=== PATIENT | female | born 1940 | race Caucasian/White ===

== ENCOUNTER 2016-09-21 15:31 | Emergency (ER) | payer MEDICARE, MEDICAID ==
[2016-09-21 15:45] VITALS: BP 143/79
[2016-09-21] MEDS ORDERED: Albuterol/Ipratropium 3.0-0.5 MG/3 ML Neb Soln NEB ONE (16:16)
--- NOTE | 2016-09-21 16:21 | EDM.PDOC ---
ED HISTORY OF PRESENT ILLNESS - General Chief Complaint: Respiratory Problem Stated Complaint: COUGH Time Seen by Provider: 09/21/16 15:58 Source of Information: Reports: Patient, Family () History Limitations: Reports: No limitations - History of Present Illness INITIAL COMMENTS - FREE TEXT/NARRATIVE: PT STATES SHE HAS HAD A COUGH AND CHEST CONGESTION FOR ABOUT 2 WEEKS AND NOW IS BECOMING SOB. DENIES CP, FEVER, N/V/D. Timing/Duration: Reports: Week(s): (2) Severity: mild Improves with: Reports: None Worsens with: Reports: None Associated Symptoms (General): Reports: cough, shortness of breath - Related Data Allergies/ADRs: Allergies Allergy/AdvReac Type Severity Reaction Status Date / Time brompheniramine Allergy Cannot Verified 09/21/16 15:43 Remember Home Meds: Home Meds Acetaminophen [Tylenol Arthritis Pain] 650 mg PO TID PRN 09/21/16 [History] Albuterol/Ipratropium [DuoNeb 3.0-0.5 MG/3 ML] 3 ml NEB DAILY PRN 09/21/16 [ History] Albuterol/Ipratropium [DuoNeb 3.0-0.5 MG/3 ML] 3 ml NEB Q8HRRT 09/21/16 [History ] Aspirin 325 mg PO DAILY 09/21/16 [History] Baclofen 5 mg PO BID 09/21/16 [History] Calcium Carbonate/Vitamin D3 [Calcium 600 + Vit D Tablet] 1 each PO BID [History] ClonazePAM [KlonoPIN] 0.25 mg PO DAILY PRN 09/21/16 [History] ClonazePAM [KlonoPIN] 0.5 mg PO BID 09/21/16 [History] Dextran 70/Hypromellose [Artificial Tears] 1 drop EYEBOTH TID 09/21/16 [History] Fenofibrate 160 mg PO BEDTIME 09/21/16 [History] Fish Oil/[place]-3 Fatty Acids [Fish Oil] 2 each PO TID 09/21/16 [History] Fluticasone/Salmeterol [Advair 250-50 Diskus] 1 each IH BID 09/21/16 [History] Ipratropium/Albuterol Sulfate [Combivent Respimat Inhal [place]] 4 gm IH QID 09/21 [History] Losartan Potassium 100 mg PO DAILY 09/21/16 [History] Magnesium Hydroxide [Milk of Magnesia] 30 ml PO BEDTIME 09/21/16 [History] Melatonin 6 mg PO BEDTIME 09/21/16 [History] Polyethylene Glycol 3350 [MiraLAX] 17 gm PO DAILY 09/21/16 [History] Potassium Chloride 20 meq PO BID 09/21/16 [History] Sertraline HCl [Zoloft] 175 mg PO DAILY 09/21/16 [History] Trolamine Salicylate/Aloe Vera [Aspercreme 10% Cream] 85 gm TP BID 09/21/16 [ History] traMADol HCl [Tramadol HCl] 100 mg PO TID 09/21/16 [History] Past Medical History HEENT History: Reports: Impaired vision Cardiovascular History: Reports: Hypertension Respiratory History: Reports: Asthma, COPD Gastrointestinal History: Reports: Chronic constipation, Hiatal hernia Genitourinary History: Reports: None SPECTRAL SCIENTIST History: Reports: None Musculoskeletal History: Reports: Arthritis, Other (see below) Other Musculoskeletal History: cystic fibrosis Neurological History: Reports: Cerebral palsy Psychiatric History: Reports: Anxiety, Depression, Mood swings Endocrine/Metabolic History: Reports: None Dermatologic History: Reports: Eczema, Psoriasis - Infectious Disease History Infectious Disease History: Reports: Chicken pox - Past Surgical History Cardiovascular Surgical History: Reports: None Respiratory Surgical History: Reports: None GI Surgical History: Reports: Appendectomy Female Surgical History: Reports: None Endocrine Surgical History: Reports: None Neurological Surgical History: Reports: None Musculoskeletal Surgical History: Reports: Knee replacement, Shoulder surgery Social & Family History - Tobacco Use Smoking Status *Q: Never Smoker Second Hand Smoke Exposure: No - Caffeine Use Caffeine Use: Reports: Coffee, Soda, Tea - Recreational Drug Use Recreational Drug Use: No ED ROS GENERAL - Review of Systems Review Of Systems: ROS reveals no pertinent complaints other than HPI. Constitutional: Reports: no symptoms HEENT: Reports: No symptoms Respiratory: Reports: Shortness of Breath, Cough Cardiovascular: Reports: No symptoms Endocrine: Reports: no symptoms GI/Abdominal: Reports: No symptoms : Reports: no symptoms Musculoskeletal: Reports: no symptoms Skin: Reports: no symptoms Neurological: Reports: No Symptoms Psychiatric: Reports: No symptoms Hematologic/Lymphatic: Reports: no symptoms Immunologic: Reports: no symptoms ED EXAM, GENERAL - Physical Exam Exam: See Below Exam Limited By: No limitations General Appearance: alert, WD/WN, no apparent distress Nose: normal inspection, normal mucosa, no blood Throat/Mouth: Normal inspection, Normal oropharynx, No airway compromise Head: atraumatic, normocephalic Neck: normal inspection Respiratory/Chest: no respiratory distress, rhonchi, wheezing Cardiovascular: regular rate, rhythm, no murmur GI/Abdominal: normal bowel sounds, soft, non tender Extremities: normal inspection Neurological: alert, oriented, normal cognition Psychiatric: normal affect, normal mood Skin Exam: Warm, Dry, Intact, Normal color, No rash Lymphatic: no adenopathy Course - Vital Signs Last Recorded V/S: Last Vital Signs Temp 98.2 F 09/21/16 15:37 Pulse 86 09/21/16 15:37 Resp 18 09/21/16 15:37 BP 143/79 H 09/21/16 15:37 Pulse Ox 95 09/21/16 15:37 - Orders/Labs/Meds Orders: Active Orders 24 hr Category Date Time Status Chest 2V [CR] Stat Exams 09/21/16 15:59 Ordered - Radiology Interpretation Free Text/Narrative:: CXR SHOWS BIBASILAR ATELECTASIS WITH RIGHT LOWER HEMITHORAX OPACIFICATION AND SUSPECT BOWEL HERNIA. - Re-Assessments/Exams Free Text/Narrative Re-Assessment/Exam: 09/21/16 17:52 PT AFEBRILE, NONTOXIC APPEARING, VSS. DISCUSSED CASE WITH DR SUAREZ, WOULD LIKE TO START PT ON ABX AND PREDNISONE AND HAVE F/U AT [facility] Departure - Departure Time of Disposition: 17:53 Disposition: DC/Tfer to [facility] Condition: good Clinical Impression: Bronchitis Instructions: Shortness of Breath, [id number], Acute Bronchitis, [id number] Forms: ED Department Discharge Additional Instructions: FOLLOW UP AT [facility] IN 2-3 DAYS. RETURN TO ER SOONER IF SYMPTOMS CONTINUE OR WORSEN - My Orders Last 24 Hours: My Active Orders 09/21/16 15:59 Chest 2V [CR] Stat - Assessment/Plan Last 24 Hours: My Active Orders 09/21/16 15:59 Chest 2V [CR] Stat Assessment:: BRONCHITIS Plan: BACTRIM / PREDNISONE / F-U AT [facility]
[2016-09-21] MEDS ORDERED: Sulfamethoxazole/Trimethoprim 800-160 MG Tab PO ONE (17:49)
[2016-09-21] MEDS ORDERED: methylPREDNISolone Sodium Succinate 125 MG/2 ML SDV IM ONE (17:49)
== END 2016-09-21 18:15 ==
LOC: KA.ED 15:31
DX: J40 Bronchitis, not specified as acute or chronic (principal); I10 Essential (primary) hypertension; J44.9 Chronic obstructive pulmonary disease, unspecified; M19.90 Unspecified osteoarthritis, unspecified site; F41.9 Anxiety disorder, unspecified; F32.9 Major depressive disorder, single episode, unspecified; Z79.82 Long term (current) use of aspirin; Z79.899 Other long term (current) drug therapy; Z90.49 Acquired absence of other specified parts of digestive tract; Z88.8 Allergy status to other drugs, medicaments and biological substances
CPT/HCPCS: 71020; 94640; 96372; 99284; A9270; J2930

== ENCOUNTER 2018-10-18 14:13 | Inpatient (IN) | payer MEDICARE, MEDICAID ==
[2018-10-18] MEDS ORDERED: Albuterol/Ipratropium 3.0-0.5 MG/3 ML Neb Soln NEB ONE (14:56)
[2018-10-18 15:01] LABS: ANION GAP 16.1 mmol/L (5-15); CHLORIDE,CL 106 mmol/L (98-115); SODIUM,NA 142 mmol/L (136-145)
--- NOTE | 2018-10-18 15:06 | EDM.PDOC ---
ED HPI GENERAL MEDICAL PROBLEM - General Chief Complaint: General Stated Complaint: ? ASPIRATION Time Seen by Provider: 10/18/18 14:55 Source of Information: Reports: Patient, Group Home Records, Provider History Limitations: Reports: No Limitations - History of Present Illness INITIAL COMMENTS - FREE TEXT/NARRATIVE: Patient is a 77-year-old female who presents to the emergency department this afternoon from [facility] with a complaint of cough, desaturation , and suspicion of aspiration. Per nursing, home staff at approximately noon today, patient was having lunch and may have aspirated because it initiated a coughing episode. Patient found to have oxygen saturation in the high 80s on room air. Nursing staff contacted Jessica Panchal, nurse practitioner for [facility]. She contacted me for concern and transfer to ER. Patient was diagnosed with pneumonia on Friday and started on Levaquin. Upon arrival patient oxygen saturation was 88% on room air, however, other vital signs were normal. Patient denies chest pain, nausea, vomiting, or fever. Onset: Today Duration: Hour(s): Location: Reports: Chest Severity: Mild Improves with: Reports: Medication Worsens with: Reports: None Associated Symptoms: Reports: Cough. Denies: cough w sputum, Fever/Chills, Nausea/Vomiting - Related Data Allergies Allergy/AdvReac Type Severity Reaction Status Date / Time brompheniramine Allergy Cannot Verified 10/18/18 14:22 Remember Home Meds: Home Meds Acetaminophen [Tylenol Arthritis Pain] 650 mg PO TID@,,09/21/16 [History] Albuterol/Ipratropium [DuoNeb 3.0-0.5 MG/3 ML] 3 ml NEB BID PRN 09/21/16 [ History] Albuterol/Ipratropium [DuoNeb 3.0-0.5 MG/3 ML] 3 ml NEB QID 09/21/16 [History] Aspirin 325 mg PO DAILY 09/21/16 [History] ClonazePAM [KlonoPIN] 0.5 mg PO BID 09/21/16 [History] Fenofibrate 160 mg PO BEDTIME 09/21/16 [History] Fish Oil/[place]-3 Fatty Acids [Fish Oil 1,000 MG] 2,000 mg PO BID 09/21/16 [ History] Fluticasone/Salmeterol [Advair 250-50 Diskus] 1 puff IH BID 09/21/16 [History] Losartan Potassium 100 mg PO DAILY 09/21/16 [History] Magnesium Hydroxide [Milk of Magnesia] 30 ml PO BEDTIME 09/21/16 [History] Polyethylene Glycol 3350 [MiraLAX] 17 gm PO DAILY PRN 09/21/16 [History] Potassium Chloride 20 meq PO BID 09/21/16 [History] Sertraline HCl [Zoloft] 150 mg PO BEDTIME 09/21/16 [History] Acetaminophen [Tylenol] 650 mg PO Q4H PRN 04/21/18 [History] Aspercreme Lotion 10% 1 applic TOP BID 04/21/18 [History] Baclofen 2.5 mg PO BID 04/21/18 [History] Calamine/Zinc Oxide [Calamine Lotion] 1 applic TP TID PRN 04/21/18 [History] Calcium Carbonate/Vitamin D3 [Calcium 600-Vit D3 400 Tablet] 1 each PO BID 04/21 [History] Ipratropium/Albuterol Sulfate [Combivent Respimat 20-100 Mcg] 1 puff INH QID@07, ,15,19 04/21/18 [History] Mirtazapine [Remeron] 7.5 mg PO BEDTIME 04/21/18 [History] Propylene Glycol/Peg 400 [Systane 0.3-0.4% Eye Drops] 1 drop EYEBOTH TID@08,, 17 04/21/18 [History] guaiFENesin 5 ml PO Q4H PRN 04/21/18 [History] Omeprazole 20 mg PO DAILY #30 cap.sr 04/28/18 [Rx] Past Medical History HEENT History: Reports: Impaired Vision Cardiovascular History: Reports: Hypertension Respiratory History: Reports: Asthma, COPD Gastrointestinal History: Reports: Chronic Constipation, Hiatal Hernia Genitourinary History: Reports: None GATE AGENT History: Reports: None Musculoskeletal History: Reports: Arthritis, Other (See Below) Other Musculoskeletal History: cystic fibrosis Neurological History: Reports: Cerebral Palsy Psychiatric History: Reports: Anxiety, Depression, Mood Swings Endocrine/Metabolic History: Reports: None Dermatologic History: Reports: Eczema, Psoriasis - Infectious Disease History Infectious Disease History: Reports: Chicken Pox - Past Surgical History Musculoskeletal Surgical History: Reports: Knee Replacement, Shoulder Surgery Social & Family History - Family History HEENT: Reports: None Cardiac: Reports: None Respiratory: Reports: None GI: Reports: None Neurological: Reports: Dementia Psychiatric: Reports: Depression Endocrine/Metabolic: Reports: Diabetes, type II - Tobacco Use Smoking Status *Q: Never Smoker Second Hand Smoke Exposure: No - Caffeine Use Caffeine Use: Reports: Coffee, Soda, Tea - Recreational Drug Use Recreational Drug Use: No ED ROS GENERAL - Review of Systems Review Of Systems: ROS reveals no pertinent complaints other than HPI. Constitutional: Reports: No Symptoms HEENT: Reports: No Symptoms Respiratory: Reports: Wheezing, Pleuritic Chest Pain Cardiovascular: Reports: No Symptoms Endocrine: Reports: No Symptoms GI/Abdominal: Reports: No Symptoms : Reports: No Symptoms Musculoskeletal: Reports: No Symptoms Skin: Reports: No Symptoms Neurological: Reports: No Symptoms Psychiatric: Reports: No Symptoms Hematologic/Lymphatic: Reports: No Symptoms Immunologic: Reports: No Symptoms ED EXAM, GENERAL - Physical Exam Exam: See Below Exam Limited By: No Limitations General Appearance: Alert, WD/WN, No Apparent Distress Nose: Normal Inspection, Normal Mucosa, No Blood Throat/Mouth: Normal Inspection, Normal Oropharynx, No Airway Compromise Head: Atraumatic, Normocephalic Neck: Normal Inspection Respiratory/Chest: No Respiratory Distress, Crackles (Right Lower lobe), Wheezing Cardiovascular: Regular Rate, Rhythm, No Murmur GI/Abdominal: Normal Bowel Sounds, Soft, Non-Tender Extremities: Normal Inspection Neurological: Alert, Oriented, Normal Cognition Psychiatric: Normal Affect, Normal Mood Skin Exam: Warm, Dry, Intact, Normal Color, No Rash Course - Vital Signs Last Recorded V/S: Last Vital Signs Temp 98.0 F 10/18/18 14:17 Pulse 112 H 10/18/18 14:17 Resp 20 10/18/18 14:17 BP 145/64 H 10/18/18 14:17 Pulse Ox 88 L 10/18/18 14:17 - Orders/Labs/Meds Orders: Active Orders 24 hr Category Date Time Status RT Aerosol Therapy [RC] ASDIRECTED Care 10/18/18 14:56 Ordered Chest 1V Frontal [CR] Stat Exams 10/18/18 14:27 Taken Labs: Laboratory Tests 10/18/18 10/18/18 Range/Units 14:30 14:30 WBC 9.69 (5.00-10.00) 10^3/uL RBC 4.18 (3.80-5.50) 10^6/uL Hgb 13.0 (12.0-16.0) g/dL Hct 40.4 (37.0-47.0) % MCV 96.7 H (82.0-92.0) fL MCH 31.1 H (27.0-31.0) pg MCHC 32.2 (32.0-36.0) g/dL RDW 12.9 (11.5-14.5) % Plt Count 217 D (150-400) 10^3/uL MPV 9.3 (7.4-10.4) fL Immature Gran % (Auto) 1.8 (0.0-5.0) % Neut % (Auto) 73.8 H (50.0-70.0) % Lymph % (Auto) 13.0 L (20.0-40.0) % [place] % (Auto) 11.1 H (2.0-8.0) % Eos % (Auto) 0.1 L (1.0-3.0) % Baso % (Auto) 0.2 (0.0-1.0) % Immature Gran # (Auto) 0.17 (0.00-0.50) 10^3/uL Neut # (Auto) 7.15 H (2.50-7.00) 10^3/uL Lymph # (Auto) 1.26 (1.00-4.00) 10^3/uL [place] # (Auto) 1.08 H (0.10-0.80) 10^3/uL Eos # (Auto) 0.01 L (0.10-0.30) 10^3/uL Baso # (Auto) 0.02 (0.00-0.10) 10^3/uL Sodium 142 (136-145) mmol/L Potassium 4.4 (3.3-5.3) mmol/L Chloride 106 (98-115) mmol/L Carbon Dioxide 24.3 (21.0-32.0) mmol/L Anion Gap 16.1 H (5-15) mmol/L BUN 33 H (6-25) mg/dL Creatinine 1.24 H (0.51-1.17) mg/dL Est Cr Clr Drug Dosing TNP Estimated GFR (MDRD) 42 mL/min Glucose 148 H (75 - 99) mg/dL Calcium 10.4 H D (8.7-10.3) mg/dL Total Bilirubin 0.1 L (0.2-1.0) mg/dL AST 15 (15-37) U/L ALT 9 L (12-78) U/L Alkaline Phosphatase 56 (46-116) IU/L Total Protein 7.9 (6.4-8.2) g/dL Albumin 2.63 L (3.00-4.80) g/dL Meds: Medications Discontinued Medications Generic Name Dose Route Start Last Admin Trade Name Freq PRN Reason Stop Dose Admin Albuterol/Ipratropium 3 ml 10/18/18 14:56 Duoneb 3.0-0.5 Mg/3 Ml NEB 10/18/18 14:57 ONETIME ONE - Radiology Interpretation Free Text/Narrative:: Chest x-ray shows right lower lobe pneumonia - Re-Assessments/Exams Free Text/Narrative Re-Assessment/Exam: 10/18/18 15:09 Patient afebrile, vital signs stable, patient received DuoNeb in ER. Mild wheezing persist bilateral apical expiratory. Discussed case with Jessica Panchal, nurse practitioner at [facility]. She will decide on antibiotic course with suspicion of aspiration. Therefore, no additional antibiotics given while in ER. Patient will be admitted inpatient and followed by [facility]. Departure - Departure Time of Disposition: 15:11 Disposition: Admitted As Inpatient 68 Clinical Impression: Pneumonia, Hypoxemia - Discharge Information Referrals: Nicole Abel MD [Primary Care Provider] - Forms: ED Department Discharge - My Orders Last 24 Hours: My Active Orders 10/18/18 14:27 Chest 1V Frontal [CR] Stat 10/18/18 14:56 RT Aerosol Therapy [RC] ASDIRECTED - Assessment/Plan Last 24 Hours: My Active Orders 10/18/18 14:27 Chest 1V Frontal [CR] Stat 10/18/18 14:56 RT Aerosol Therapy [RC] ASDIRECTED Assessment:: Pneumonia Plan: Admit inpatient to [facility]
[2018-10-18] MEDS ORDERED: Acetaminophen 325 MG Tab PO PRN (16:21)
[2018-10-18] MEDS ORDERED: Ondansetron 4 MG Tab.DIS PO PRN (16:27)
[2018-10-18] MEDS ORDERED: Magnesium Hydroxide 400 MG/5 ML Susp 30 ML Cup PO PRN (16:27)
[2018-10-18] MEDS ORDERED: Polyethylene Glycol 3350 Powder 17 GM Packet PO PRN (16:27)
--- NOTE | 2018-10-18 16:38 | PCM.HP ---
H&P History of Present Illness - General Date of Service: 10/18/18 Admit Problem/Dx: Admission Diagnosis/Problem Admission Diagnosis/Problem Pneumonia Source of Information: Patient, [facility] Records, Old Records, Provider, RN History Limitations: Reports: No Limitations - History of Present Illness Initial Comments - Free Text/Narative: This is a 77 year old female with a past history notable for cerebral palsy, COPD, and remote history of Cdiff who presented to the ED due to possible aspiration at noon on 10/18/18 and hypoxia. She resides at [facility]. Patient states she was eating food when the coughing fit occurred. She reports chest pain with coughing. Patient was seen in the [facility] on 10/16/18 by myself due to cough and shortness of breath for the few days prior. She had lab and chest x-ray performed at that time with the following results; WBC 7.9 no neutrophilia, CMP unremarkable, BNP 48, and x-ray noting opacity in the lower 2/3 of the right lung possibly representing a large hiatal hernia or diaphragmatic hernia (chronic) and no infiltrates. She was started on levaquin 750 mg daily and DuoNebs QID for probable RLL pneumonia. Procalcitonin noted to be elevated at 0.10. This provider received a follow-up phone call from [facility] on 10/17/18 noting increased wheezing, so she was initiated on prednisone 20 mg BID. She had work-up in the ED notable for RLL pneumonia. She was admitted for further monitoring and treatment. - Related Data Allergies/Adverse Reactions: Allergies Allergy/AdvReac Type Severity Reaction Status Date / Time brompheniramine Allergy Cannot Verified 10/18/18 14:22 Remember Home Medications: Home Meds Acetaminophen [Tylenol Arthritis Pain] 650 mg PO TID@08,,17 09/21/16 [History] Albuterol/Ipratropium [DuoNeb 3.0-0.5 MG/3 ML] 3 ml NEB DAILY PRN 09/21/16 [ History] Albuterol/Ipratropium [DuoNeb 3.0-0.5 MG/3 ML] 3 ml NEB QID 09/21/16 [History] Aspirin 325 mg PO DAILY 09/21/16 [History] ClonazePAM [KlonoPIN] 0.5 mg PO TID 09/21/16 [History] Fish Oil/Blue Grass-3 Fatty Acids [Fish Oil 1,000 MG] 2,000 mg PO BID 09/21/16 [ History] Magnesium Hydroxide [Milk of Magnesia] 30 ml PO BEDTIME PRN 09/21/16 [History] Polyethylene Glycol 3350 [MiraLAX] 17 gm PO DAILY PRN 09/21/16 [History] Potassium Chloride 20 meq PO BID 09/21/16 [History] Sertraline HCl [Zoloft] 150 mg PO BEDTIME 09/21/16 [History] Acetaminophen [Tylenol] 650 mg PO Q4H PRN 04/21/18 [History] Aspercreme Lotion 10% 1 applic TOP BID 04/21/18 [History] Baclofen 2.5 mg PO BID 04/21/18 [History] Calamine/Zinc Oxide [Calamine Lotion] 1 applic TP TID PRN 04/21/18 [History] Calcium Carbonate/Vitamin D3 [Calcium 600-Vit D3 400 Tablet] 1 each PO BID 04/21 [History] Mirtazapine [Remeron] 7.5 mg PO BEDTIME 04/21/18 [History] Propylene Glycol/Peg 400 [Systane 0.3-0.4% Eye Drops] 1 drop EYEBOTH TID@,, 04/21/18 [History] guaiFENesin 5 ml PO Q4H PRN 04/21/18 [History] Budesonide [Pulmicort] 0.5 mg IH BID 10/18/18 [History] Famotidine [Pepcid] 20 mg PO BID 10/18/18 [History] Fenofibrate Nanocrystallized [Fenofibrate] 48 mg PO DAILY 10/18/18 [History] Lactobacillus Acidophilus [Acidophilus] 2 each PO BID 10/18/18 [History] Levofloxacin [Levaquin] 750 mg PO DAILY 10/18/18 [History] Loperamide [Imodium AD] 2 mg PO Q6H PRN 10/18/18 [History] Losartan Potassium [Cozaar] 50 mg PO DAILY 10/18/18 [History] Nystatin [Nystatin Ointment] 15 gm TOP TID PRN 10/18/18 [History] Ondansetron [Zofran ODT] 4 mg PO Q4H PRN 10/18/18 [History] Saliva Substitution Combo No.9 [Biotene] 1 ml PO DAILY PRN 10/18/18 [History] predniSONE [Prednisone] 20 mg PO BID 10/18/18 [History] Past Medical History HEENT History: Reports: Impaired Vision Cardiovascular History: Reports: Hypertension Respiratory History: Reports: Asthma, COPD Gastrointestinal History: Reports: Chronic Constipation, Hiatal Hernia Genitourinary History: Reports: None [employer] History: Reports: None Musculoskeletal History: Reports: Arthritis, Other (See Below) Other Musculoskeletal History: cystic fibrosis Neurological History: Reports: Cerebral Palsy Psychiatric History: Reports: Anxiety, Depression, Mood Swings Endocrine/Metabolic History: Reports: None Dermatologic History: Reports: Eczema, Psoriasis - Infectious Disease History Infectious Disease History: Reports: Chicken Pox - Past Surgical History Musculoskeletal Surgical History: Reports: Knee Replacement, Shoulder Surgery Social & Family History - Family History HEENT: Reports: None Cardiac: Reports: None Respiratory: Reports: None GI: Reports: None Neurological: Reports: Dementia Psychiatric: Reports: Depression Endocrine/Metabolic: Reports: Diabetes, type II - Tobacco Use Smoking Status *Q: Never Smoker Second Hand Smoke Exposure: No - Caffeine Use Caffeine Use: Reports: Coffee, Soda, Tea - Recreational Drug Use Recreational Drug Use: No H&P Review of Systems - Review of Systems: Review Of Systems: See Below General: Reports: Fatigue. Denies: Fever, Chills, Decreased Appetite HEENT: Reports: Glasses. Denies: Ear Pain, Headaches, Sinus Congestion, Sore Throat Pulmonary: Reports: Shortness of Breath (at times), Cough, Other (chest pain with coughing). Denies: Sputum Cardiovascular: Denies: Chest Pain, Edema Gastrointestinal: Denies: Abdominal Pain, Constipation, Diarrhea, Nausea, Vomiting Genitourinary: Reports: No Symptoms Musculoskeletal: Reports: No Symptoms Psychiatric: Denies: Confusion, Depression, Anxiety Neurological: Denies: Confusion, Headache Exam - Exam Exam: See Below - Vital Signs Vital Signs: Last Vital Signs Temp 98.0 F 10/18/18 14:17 Pulse 112 H 10/18/18 15:10 Resp 20 10/18/18 14:17 BP 145/64 H 10/18/18 14:17 Pulse Ox 88 L 10/18/18 14:17 Weight: 108 lb 4.8 oz - Exam Quality Assessment: Supplemental Oxygen (2 liters per nasal cannula), DVT Prophylaxis (score of 3: will initiate lovenox 30 mg SQ daily due to renal function). No: Urinary Catheter General: Alert, Oriented, Cooperative, Other (No distress) HEENT: Conjunctiva Clear, Hearing Intact, Nares Patent, Posterior Pharynx Clear , Pupils Equal, TMs Clear, Glasses. No: Mucosa Moist & [place] (pink and dry) Neck: Supple, Trachea Midline Lungs: Normal Respiratory Effort, Other (expiratory wheezing noted to SALMA and right lung cohen with coarse crackles to RLL) Cardiovascular: Regular Rhythm, Normal S1, Normal S2, Tachycardia (110 bpm apical). No: Systolic Murmur, Diastolic Murmur GI/Abdominal Exam: Normal Bowel Sounds, Soft, Non-Tender, No Distention Extremities: No Pedal Edema Skin: Warm, Dry, Intact Neurological: Normal Speech Neuro Extensive - Mental Status: Alert, Normal Mood/Affect Psychiatric: Alert, Normal Affect, Normal Mood - Patient Data Lab Results Last 24 hrs: Laboratory Results - last 24 hr 10/18/18 10/18/18 Range/Units 14:30 14:30 WBC 9.69 (5.00-10.00) 10^3/uL RBC 4.18 (3.80-5.50) 10^6/uL Hgb 13.0 (12.0-16.0) g/dL Hct 40.4 (37.0-47.0) % MCV 96.7 H (82.0-92.0) fL MCH 31.1 H (27.0-31.0) pg MCHC 32.2 (32.0-36.0) g/dL RDW 12.9 (11.5-14.5) % Plt Count 217 D (150-400) 10^3/uL MPV 9.3 (7.4-10.4) fL Immature Gran % (Auto) 1.8 (0.0-5.0) % Neut % (Auto) 73.8 H (50.0-70.0) % Lymph % (Auto) 13.0 L (20.0-40.0) % Alfalfa % (Auto) 11.1 H (2.0-8.0) % Eos % (Auto) 0.1 L (1.0-3.0) % Baso % (Auto) 0.2 (0.0-1.0) % Immature Gran # (Auto) 0.17 (0.00-0.50) 10^3/uL Neut # (Auto) 7.15 H (2.50-7.00) 10^3/uL Lymph # (Auto) 1.26 (1.00-4.00) 10^3/uL Alfalfa # (Auto) 1.08 H (0.10-0.80) 10^3/uL Eos # (Auto) 0.01 L (0.10-0.30) 10^3/uL Baso # (Auto) 0.02 (0.00-0.10) 10^3/uL Sodium 142 (136-145) mmol/L Potassium 4.4 (3.3-5.3) mmol/L Chloride 106 (98-115) mmol/L Carbon Dioxide 24.3 (21.0-32.0) mmol/L Anion Gap 16.1 H (5-15) mmol/L BUN 33 H (6-25) mg/dL Creatinine 1.24 H (0.51-1.17) mg/dL Est Cr Clr Drug Dosing TNP Estimated GFR (MDRD) 42 mL/min Glucose 148 H (75 - 99) mg/dL Calcium 10.4 H D (8.7-10.3) mg/dL Total Bilirubin 0.1 L (0.2-1.0) mg/dL AST 15 (15-37) U/L ALT 9 L (12-78) U/L Alkaline Phosphatase 56 (46-116) IU/L Total Protein 7.9 (6.4-8.2) g/dL Albumin 2.63 L (3.00-4.80) g/dL Result Diagrams: 10/18/18 14:30 10/18/18 14:30 Problem List Initiated/Reviewed/Updated: Yes Orders Last 24hrs: Active Orders 24 hr Category Date Time Status Patient Status [ADT] Routine ADT 10/18/18 15:22 Ordered Intake and Output [RC] QSHIFT Care 10/18/18 16:22 Ordered Oxygen Therapy [RC] PRN Care 10/18/18 15:22 Inactive Oxygen Therapy [RC] PRN Care 10/18/18 16:21 Ordered RT Aerosol Therapy [RC] ASDIRECTED Care 10/18/18 14:56 Active Swallow Screen [Nursing Bedside Swallow Screen] [RC] Care 10/18/18 16:31 Ordered ASDIRECTED Up With Assistance [RC] ASDIRECTED Care 10/18/18 16:21 Ordered VTE/DVT Education [RC] PER UNIT ROUTINE Care 10/18/18 15:22 Active Vital Signs [RC] Q4H Care 10/18/18 15:22 Inactive Vital Signs [RC] Q4H Care 10/18/18 16:21 Active Regular Diet [DIET] Diet 10/18/18 Dinner Active Thickened Liquids [DIET] Diet 10/18/18 Dinner Ordered Chest 1V Frontal [CR] Stat Exams 10/18/18 14:27 Taken Swallowing Function w Video [CR] Routine Exams 10/19/18 10:00 Ordered BASIC METABOLIC PANEL,BMP [CHEM] AM Lab 10/19/18 05:11 Ordered CBC WITH AUTO DIFF [HEME] AM Lab 10/19/18 05:11 Ordered Acetaminophen [Tylenol Arthritis Pain] Med 10/18/18 17:00 Ordered 650 mg PO TID@,,17 Acetaminophen [Tylenol] Med 10/18/18 16:21 Ordered 650 mg PO Q4H PRN Albuterol/Ipratropium [DuoNeb 3.0-0.5 MG/3 ML] Med 10/18/18 17:00 Ordered 3 ml NEB QID Aspercreme Lotion 10% Med 10/18/18 21:00 Ordered 1 applic TOP BID Aspirin [Aspirin] Med 10/19/18 09:00 Ordered 325 mg PO DAILY Baclofen [Baclofen] Med 10/18/18 21:00 Ordered 2.5 mg PO BID Budesonide [Pulmicort] Med 10/18/18 21:00 Ordered 0.5 mg INH BID Calcium Carbonate/Vitamin D3 [Calcium 600-Vit D3 400 Med 10/18/18 21:00 Ordered Tablet] 1 each PO BID ClonazePAM [KlonoPIN] Med 10/18/18 21:00 Ordered 0.5 mg PO TID Famotidine [Pepcid] Med 10/18/18 21:00 Ordered 20 mg PO BID Fenofibrate Nanocrystallized [Fenofibrate] Med 10/19/18 09:00 Ordered 48 mg PO DAILY Fish Oil/Blue Grass-3 Fatty Acids [Fish Oil] Med 10/18/18 21:00 Ordered 2 gm PO BID Lactobacillus Acidophilus [Acidophilus] Med 10/18/18 21:00 Ordered 2 each PO BID Loperamide [Imodium AD] Med 10/18/18 16:27 Ordered 2 mg PO Q6H PRN Losartan [Cozaar] Med 10/19/18 09:00 Ordered 50 mg PO DAILY Magnesium Hydroxide [Milk of Magnesia] Med 10/18/18 16:27 Ordered 30 ml PO BEDTIME PRN Mirtazapine Med 10/18/18 21:00 Ordered 7.5 mg PO BEDTIME Ondansetron [Zofran ODT] Med 10/18/18 16:27 Ordered 4 mg PO Q4H PRN Pharmacy to Dose - Vancomycin Med 10/18/18 16:45 Ordered 1 dose .XX ASDIRECTED Piperacillin/Tazobactam/Dext [Zosyn in Dextrose Iso- Med 10/18/18 16:45 Ordered Osmotic 3.375 GM] 3.375 gm Premix Bag 1 bag IV Q6H Polyethylene Glycol 3350 [MiraLAX] Med 10/18/18 16:27 Ordered 17 gm PO DAILY PRN Potassium Chloride [Potassium Chloride] Med 10/18/18 21:00 Ordered 20 meq PO BID Propylene Glycol/Peg 400 [Systane 0.3-0.4% Eye Drops] Med 10/18/18 17:00 Ordered 1 drop EYEBOTH TID@17 Sertraline [Zoloft] Med 10/18/18 21:00 Ordered 150 mg PO BEDTIME Sodium Chloride 0.9% [Normal Saline] 1,000 ml Med 10/18/18 16:30 Ordered IV ASDIRECTED guaiFENesin [Robitussin] Med 10/18/18 16:27 Ordered 100 mg PO Q4H PRN predniSONE Med 10/18/18 21:00 Ordered 20 mg PO BID Resuscitation Status Routine Resus Stat 10/18/18 15:22 Ordered Medication Orders Acetaminophen (Tylenol) 650 mg PO Q4H PRN PRN Reason: Pain (Mild 1-3)/fever Acetaminophen (Tylenol Arthritis Pain) 650 mg PO TID@,,17 [facility] Albuterol/Ipratropium (Duoneb 3.0-0.5 Mg/3 Ml) 3 ml NEB QID [facility] Budesonide (Pulmicort) 0.5 mg INH BID [facility] Clonazepam (Klonopin) 0.5 mg PO TID [facility] Famotidine (Pepcid) 20 mg PO BID [facility] Fish Oil (Fish Oil) 2 gm PO BID [facility] Guaifenesin (Robitussin) 100 mg PO Q4H PRN PRN Reason: Cough Sodium Chloride (Normal Saline) 1,000 mls @ 100 mls/hr IV ASDIRECTED [facility] Piperacillin/Tazobactam/ (Dextrose 3.375 gm/ Premix) 50 mls @ 100 mls/hr IV Q6H [facility] Losartan Potassium (Cozaar) 50 mg PO DAILY [facility] Magnesium Hydroxide (Milk Of Magnesia) 30 ml PO BEDTIME PRN PRN Reason: Constipation Non-Formulary Medication (Aspercreme Lotion 10%) 1 applic TOP BID [facility] Non-Formulary Medication (Aspirin [Aspirin]) 325 mg PO DAILY [facility] Non-Formulary Medication (Baclofen [Baclofen]) 2.5 mg PO BID [facility] Non-Formulary Medication (Calcium Carbonate/Vitamin D3 [Calcium 600-Vit D3 400 Tablet]) 1 each PO BID [facility] Non-Formulary Medication (Fenofibrate Nanocrystallized [Fenofibrate]) 48 mg PO DAILY [facility] Non-Formulary Medication (Lactobacillus Acidophilus [Acidophilus]) 2 each PO BID [facility] Non-Formulary Medication (Loperamide [Imodium Ad]) 2 mg PO Q6H PRN PRN Reason: Diarrhea Non-Formulary Medication (Mirtazapine) 7.5 mg PO BEDTIME [facility] Non-Formulary Medication (Potassium Chloride [Potassium Chloride]) 20 meq PO BID [facility] Non-Formulary Medication (Propylene Glycol/Peg 400 [Systane 0.3-0.4% Eye Drops] ) 1 drop EYEBOTH TID@,,17 [facility] Ondansetron HCl (Zofran Odt) 4 mg PO Q4H PRN PRN Reason: Nausea Polyethylene Glycol (Miralax) 17 gm PO DAILY PRN PRN Reason: Constipation Prednisone (Prednisone) 20 mg PO BID [facility] Sertraline HCl (Zoloft) 150 mg PO BEDTIME [facility] Vancomycin HCl (Pharmacy To Dose - Vancomycin) 1 dose .XX ASDIRECTED [facility] Assessment/Plan Comment:: HPI: This is a 77 year old female with a past history notable for cerebral palsy , COPD, and remote history of Cdiff who presented to the ED due to possible aspiration at noon on 10/18/18 and hypoxia. She resides at the [facility]. Patient states she was eating food when the coughing fit occurred. She reports chest pain with coughing. Patient was seen in the [facility] on 10/16/18 by myself due to cough and shortness of breath for the few days prior. She had lab and chest x-ray performed at that time with the following results; WBC 7.9 no neutrophilia, CMP unremarkable, BNP 48, and x-ray noting opacity in the lower 2/3 of the right lung possibly representing a large hiatal hernia or diaphragmatic hernia (chronic) and no infiltrates. She was started on levaquin 750 mg daily and DuoNebs QID for probable RLL pneumonia. Procalcitonin noted to be elevated at 0.10. This provider received a follow-up [facility] on 10[facility]18 noting increased wheezing, so she was initiated on prednisone 20 mg BID. She had work-up in the ED notable for RLL pneumonia. She was admitted for further monitoring and treatment. Pertinent ED work-up: WBC 9.6 with neutrophilia Creatinine 1.24 GFR 42 CXR-Mild right base infiltrate DuoNeb x 1 Further work-up upon admission: Medication reconciliation General orders Primary assessment/plan: RLL pneumonia, present on admission, rule out aspiration pneumonia. Discontinue oral levaquin. Provide coverage for possible aspiration component with IV vancomycin and IV zosyn. DuoNebs QID. Continue prednisone 20 mg po BID. Oxygen via nasal cannula to keep saturations >90%. CBC in AM. Obtain bedside swallow evaluation and formal x-ray swallow study. Acute COPD exacerbation. See plan above. Continue pulmicort nebs BID. Acute hypoxia. Acute kidney injury secondary to dehydration. Baseline creatinine 0.6-0.7. NS at 100 mL/hr. BMP in AM. Secondary assessment/plan: Voice hoarseness, persistent, unknown etiology. Initially thought to be related to stopping the PPI therapy due to Cdiff in the remote past. Trial of pepcid has not made much improvement. Consideration for ENT evaluation with nasolaryngoscopy. This has been discussed with brother in the recent past. May need to revisit this given possible aspiration component. Chronic dysphagia. Continue with regular dental texture soft diet and honey thickened liquids. Esophageal reflux. Continue pepcid BID. HTN. Continue losartan 50 mg daily. Hypokalemia. Continue potassium 20 mEq BID. HLD. LDL 46 (September 2017). Continue fenofibrate for now and fish oil. Major depression, recurrent. Continue zoloft 150 mg at HS. Anxiety. Continue clonazepam TID. Infantile cerebral palsy. Insomnia. Continue remeron 7.5 mg at HS. Mildline low back pain with sciatica. Remote history of recurrent Cdiff infection. Continue probiotics BID. Primary osteoarthritis of multiple joints. Continue scheduled tylenol and baclofen. DVT prophylaxis. Lovenox 30 mg SQ daily due to renal clearance. Overall plan: Patient will receive IV antibiotics and fluids. Monitor hemodynamic status. Evaluate swallowing. Repeat labs in AM.
[2018-10-18] MEDS ORDERED: Piperacillin/Tazobactam/Dext 3.375 GM in Premix Bag 1 BAG IV SCH (16:45)
[2018-10-18] MEDS ORDERED: Piperacillin/Tazobactam 2.25 GM in Sodium Chloride 0.9% 50 ML IV SCH ×2 (17:00→18:17)
[2018-10-18] MEDS ORDERED: Loperamide 2 MG Cap PO PRN (17:02)
[2018-10-18] MEDS: Acetaminophen 650 MG Tab.ER PO SCH (17:26)
[2018-10-18] MEDS ORDERED: Vancomycin 0.5 GM in Sodium Chloride 0.9% 250 ML IV ONE (18:00)
[2018-10-18] MEDS ORDERED: Enoxaparin 30 MG/0.3 ML Syringe SUBCUT SCH (18:00)
[2018-10-18] MEDS: Sodium Chloride 0.9% 1,000 ML IV SCH (18:13)
[2018-10-18] MEDS: Piperacillin/Tazobactam 2.25 GM in Sodium Chloride 0.9% 50 ML IV SCH (18:24)
[2018-10-18] MEDS: Trolamine Salicylate/Aloe Vera 10% Crm 85 GM Tube TOP SCH (20:32)
[2018-10-18] MEDS: Fish Oil/Omega-3 Fatty Acids 1 Gm Cap PO SCH ×2 (20:35→22:44)
[2018-10-18] MEDS: Potassium Chloride 20 MEQ Tab.ER PO SCH (20:35)
[2018-10-18] MEDS: Calcium Citrate/Vitamin D3 315 MG-250 Unit Tab PO SCH (20:35)
[2018-10-18] MEDS: ClonazePAM 0.5 MG Tab PO SCH (20:35)
[2018-10-18] MEDS: Mirtazapine 15 MG Tab PO SCH (20:36)
[2018-10-18] MEDS: B.Bifidum/B.Longum/L.Acidophilus/L.Rhamnosus (Probiotic) Cap PO SCH (20:36)
[2018-10-18] MEDS: predniSONE 20 MG Tab PO SCH (20:36)
[2018-10-18] MEDS: Sertraline 50 MG Tab PO SCH (20:37)
[2018-10-18] MEDS: Budesonide 0.5 MG/2 ML Neb Susp INH SCH (20:56)
[2018-10-18] MEDS: Albuterol/Ipratropium 3.0-0.5 MG/3 ML Neb Soln NEB SCH (22:44)
[2018-10-19] MEDS: Piperacillin/Tazobactam 2.25 GM in Sodium Chloride 0.9% 50 ML IV SCH ×2 (00:12→06:12)
[2018-10-19] MEDS ORDERED: Sodium Chloride 0.9% 50 ML ONE (04:27)
[2018-10-19] MEDS: Albuterol/Ipratropium 3.0-0.5 MG/3 ML Neb Soln NEB SCH ×4 (05:40→22:07)
[2018-10-19] MEDS: Sodium Chloride 0.9% 1,000 ML IV SCH (06:09)
[2018-10-19] MEDS: Budesonide 0.5 MG/2 ML Neb Susp INH SCH ×2 (07:36→20:55)
[2018-10-19 07:58] LABS: ANION GAP 12.3 mmol/L (5-15); CHLORIDE,CL 109 mmol/L (98-115); SODIUM,NA 143 mmol/L (136-145)
[2018-10-19] MEDS ORDERED: Sodium Chloride 0.9% 1,000 ML IV SCH (08:45)
--- NOTE | 2018-10-19 08:54 | PCM.PN ---
- General Info Date of Service: 10/19/18 Subjective Update: Patient sitting up in wheelchair eating breakfast per self on rounds. Overall reports that she is feeling some better. Functional Status: Reports: Pain Controlled, Tolerating Diet, Urinating - Review of Systems General: Reports: Fatigue. Denies: Fever, Chills HEENT: Reports: Glasses. Denies: Headaches Pulmonary: Reports: Shortness of Breath (at times), Cough, Other (chest pain with coughing episodes). Denies: Sputum Cardiovascular: Denies: Chest Pain, Edema Gastrointestinal: Denies: Abdominal Pain Genitourinary: Reports: No Symptoms Musculoskeletal: Reports: No Symptoms Neurological: Denies: Headache Psychiatric: Reports: No Symptoms - Patient Data Vitals - Most Recent: Last Vital Signs Temp 97.2 F 10/19/18 06:47 Pulse 96 10/19/18 07:36 Resp 20 10/19/18 06:47 BP 128/68 10/19/18 06:47 Pulse Ox 95 10/19/18 07:36 Weight - Most Recent: 108 lb 4.8 oz I&O - Last 24 Hours: Intake & Output 10/18/18 10/19/18 10/19/18 22:59 06:59 14:59 Intake Total 670 940 Output Total 125 200 Balance 545 740 Lab Results Last 24 Hours: Laboratory Results - last 24 hr 10/18/18 10/18/18 10/19/18 Range/Units 14:30 14:30 07:20 WBC 9.69 7.80 (5.00-10.00) 10^3/uL RBC 4.18 3.76 L (3.80-5.50) 10^6/uL Hgb 13.0 11.7 L (12.0-16.0) g/dL Hct 40.4 36.6 L (37.0-47.0) % MCV 96.7 H 97.3 H (82.0-92.0) fL MCH 31.1 H 31.1 H (27.0-31.0) pg MCHC 32.2 32.0 (32.0-36.0) g/dL RDW 12.9 12.7 (11.5-14.5) % Plt Count 217 D 178 (150-400) 10^3/uL MPV 9.3 9.4 (7.4-10.4) fL Immature Gran % (Auto) 1.8 4.0 (0.0-5.0) % Neut % (Auto) 73.8 H 74.8 H (50.0-70.0) % Lymph % (Auto) 13.0 L 13.5 L (20.0-40.0) % Hale % (Auto) 11.1 H 7.6 (2.0-8.0) % Eos % (Auto) 0.1 L 0.0 L (1.0-3.0) % Baso % (Auto) 0.2 0.1 (0.0-1.0) % Immature Gran # (Auto) 0.17 0.31 (0.00-0.50) 10^3/uL Neut # (Auto) 7.15 H 5.84 (2.50-7.00) 10^3/uL Lymph # (Auto) 1.26 1.05 (1.00-4.00) 10^3/uL Hale # (Auto) 1.08 H 0.59 (0.10-0.80) 10^3/uL Eos # (Auto) 0.01 L 0.00 L (0.10-0.30) 10^3/uL Baso # (Auto) 0.02 0.01 (0.00-0.10) 10^3/uL Sodium 142 (136-145) mmol/L Potassium 4.4 (3.3-5.3) mmol/L Chloride 106 (98-115) mmol/L Carbon Dioxide 24.3 (21.0-32.0) mmol/L Anion Gap 16.1 H (5-15) mmol/L BUN 33 H (6-25) mg/dL Creatinine 1.24 H (0.51-1.17) mg/dL Est Cr Clr Drug Dosing TNP Estimated GFR (MDRD) 42 mL/min Glucose 148 H (75 - 99) mg/dL Calcium 10.4 H D (8.7-10.3) mg/dL Total Bilirubin 0.1 L (0.2-1.0) mg/dL AST 15 (15-37) U/L ALT 9 L (12-78) U/L Alkaline Phosphatase 56 (46-116) IU/L Total Protein 7.9 (6.4-8.2) g/dL Albumin 2.63 L (3.00-4.80) g/dL 10/19/18 Range/Units 07:20 WBC (5.00-10.00) 10^3/uL RBC (3.80-5.50) 10^6/uL Hgb (12.0-16.0) g/dL Hct (37.0-47.0) % MCV (82.0-92.0) fL MCH (27.0-31.0) pg MCHC (32.0-36.0) g/dL RDW (11.5-14.5) % Plt Count (150-400) 10^3/uL MPV (7.4-10.4) fL Immature Gran % (Auto) (0.0-5.0) % Neut % (Auto) (50.0-70.0) % Lymph % (Auto) (20.0-40.0) % Hale % (Auto) (2.0-8.0) % Eos % (Auto) (1.0-3.0) % Baso % (Auto) (0.0-1.0) % Immature Gran # (Auto) (0.00-0.50) 10^3/uL Neut # (Auto) (2.50-7.00) 10^3/uL Lymph # (Auto) (1.00-4.00) 10^3/uL Hale # (Auto) (0.10-0.80) 10^3/uL Eos # (Auto) (0.10-0.30) 10^3/uL Baso # (Auto) (0.00-0.10) 10^3/uL Sodium 143 (136-145) mmol/L Potassium 4.2 (3.3-5.3) mmol/L Chloride 109 (98-115) mmol/L Carbon Dioxide 25.9 (21.0-32.0) mmol/L Anion Gap 12.3 (5-15) mmol/L BUN 27 H (6-25) mg/dL Creatinine 0.62 (0.51-1.17) mg/dL Est Cr Clr Drug Dosing 56.31 Estimated GFR (MDRD) > 60 mL/min Glucose 164 H (75 - 99) mg/dL Calcium 9.0 (8.7-10.3) mg/dL Total Bilirubin (0.2-1.0) mg/dL AST (15-37) U/L ALT (12-78) U/L Alkaline Phosphatase (46-116) IU/L Total Protein (6.4-8.2) g/dL Albumin (3.00-4.80) g/dL Med Orders - Current: Current Medications Acetaminophen (Tylenol) 650 mg PO Q4H PRN PRN Reason: Pain (Mild 1-3)/fever Acetaminophen (Tylenol Arthritis Pain) 650 mg PO TID@08,,17 [facility] Last Admin: 10/18/18 17:26 Dose: 650 mg Albuterol/Ipratropium (Duoneb 3.0-0.5 Mg/3 Ml) 3 ml NEB QIDRT [facility] Last Admin: 10/19/18 05:40 Dose: 3 ml Aspirin (Ecotrin) 325 mg PO DAILY [facility] Budesonide (Pulmicort) 0.5 mg INH BIDRT [facility] Last Admin: 10/19/18 07:36 Dose: 0.5 mg Calcium Citrate (Calcium Citrate + D) 1 tab PO BID [facility] Last Admin: 10/18/18 20:35 Dose: 1 tab Clonazepam (Klonopin) 0.5 mg PO TID [facility] Last Admin: 10/18/18 20:35 Dose: 0.5 mg Enoxaparin Sodium (Lovenox) 30 mg SUBCUT Q24H [facility] Last Admin: 10/18/18 17:27 Dose: 30 mg Famotidine (Pepcid) 20 mg PO DAILY [facility] Fish Oil (Fish Oil) 2 gm PO BID [facility] Last Admin: 10/18/18 22:44 Dose: Not Given Guaifenesin (Robitussin) 100 mg PO Q4H PRN PRN Reason: Cough Sodium Chloride (Normal Saline) 1,000 mls @ 100 mls/hr IV ASDIRECTED [facility] Last Admin: 10/19/18 06:09 Dose: 100 mls/hr Piperacillin Sod/Tazobactam (Sod 2.25 gm/ Sodium Chloride) 50 mls @ 100 mls/hr IV Q6H [facility] Last Admin: 10/19/18 06:12 Dose: 100 mls/hr Lactobacillus Acidophilus/Rhamnosus (Multi-Danna Plus) 2 cap PO BID [facility] Last Admin: 10/18/18 20:36 Dose: 2 cap Loperamide HCl (Imodium) 2 mg PO Q6H PRN PRN Reason: Diarrhea Losartan Potassium (Cozaar) 50 mg PO DAILY [facility] Magnesium Hydroxide (Milk Of Magnesia) 30 ml PO BEDTIME PRN PRN Reason: Constipation Mirtazapine (Remeron) 7.5 mg PO BEDTIME [facility] Last Admin: 10/18/18 20:36 Dose: 7.5 mg Non-Formulary Medication (Baclofen [Baclofen]) 2.5 mg PO BID [facility] Non-Formulary Medication (Fenofibrate Nanocrystallized [Fenofibrate]) 48 mg PO BEDTIME [facility] Non-Formulary Medication (Propylene Glycol/Peg 400 [Systane 0.3-0.4% Eye Drops] ) 1 drop EYEBOTH TID@ [facility] Ondansetron HCl (Zofran Odt) 4 mg PO Q4H PRN PRN Reason: Nausea Polyethylene Glycol (Miralax) 17 gm PO DAILY PRN PRN Reason: Constipation Potassium Chloride (Klor-Con M20) 20 meq PO BID [facility] Last Admin: 10/18/18 20:35 Dose: 20 meq Prednisone (Prednisone) 20 mg PO BID [facility] Stop: 10/21/18 23:59 Last Admin: 10/18/18 20:36 Dose: 20 mg Sertraline HCl (Zoloft) 150 mg PO BEDTIME [facility] Last Admin: 10/18/18 20:37 Dose: 150 mg Trolamine Salicylate (Aspercreme 10%) 0 gm TOP BID [facility] Last Admin: 10/18/18 20:32 Dose: 1 applic Vancomycin HCl (Pharmacy To Dose - Vancomycin) 1 dose .XX ASDIRECTED [facility] Discontinued Medications Albuterol/Ipratropium (Duoneb 3.0-0.5 Mg/3 Ml) 3 ml NEB ONETIME ONE Stop: 10/18/18 14:57 Last Admin: 10/18/18 15:10 Dose: 3 ml Piperacillin Sod/Tazobactam (Sod 2.25 gm/ Sodium Chloride) 50 mls @ 100 mls/hr IV Q6H [facility] Last Admin: 10/18/18 19:20 Dose: Not Given Vancomycin HCl 0.5 gm/ Sodium (Chloride) 250 mls @ 500 mls/hr IV ONETIME ONE Stop: 10/18/18 18:29 Last Admin: 10/18/18 18:55 Dose: 500 mls/hr Piperacillin Sod/Tazobactam (Sod 2.25 gm/ Sodium Chloride) 50 mls @ 100 mls/hr IV Q6H [facility] Last Admin: 10/18/18 19:20 Dose: Not Given Sodium Chloride (Normal Saline) Confirm Administered Dose 50 mls @ as directed .ROUTE .STK-MED ONE Stop: 10/19/18 04:28 Last Admin: 10/19/18 04:29 Dose: Not Given - Exam Quality Assessment: Supplemental Oxygen (96% on 2 lpm nasal cannula), DVT Prophylaxis (Lovenox). No: Urine Catheter General: Alert, Oriented, Cooperative, No Acute Distress Lungs: Normal Respiratory Effort, Wheezing (heard throughout lung cohen). No: Crackles, Rales Cardiovascular: Regular Rhythm, No Murmurs, Tachycardia (96 bpm apical) Extremities: No Pedal Edema Skin: Warm, Dry Neurological: Normal Speech Psy/Mental Status: Alert, Normal Affect, Normal Mood - Problem List Review Problem List Initiated/Reviewed/Updated: Yes - My Orders Last 24 Hours: My Active Orders 10/18/18 16:21 Oxygen Therapy [RC] PRN Up With Assistance [RC] BID Vital Signs [RC] 0300,0700,1100,1500,1900,2300 Acetaminophen [Tylenol] 650 mg PO Q4H PRN 10/18/18 16:22 Intake and Output [RC] 0600,1400,2200 10/18/18 16:27 Magnesium Hydroxide [Milk of Magnesia] 30 ml PO BEDTIME PRN Ondansetron [Zofran ODT] 4 mg PO Q4H PRN Polyethylene Glycol 3350 [MiraLAX] 17 gm PO DAILY PRN guaiFENesin [Robitussin] 100 mg PO Q4H PRN 10/18/18 16:30 Sodium Chloride 0.9% [Normal Saline] 1,000 ml IV ASDIRECTED 10/18/18 16:31 Swallow Screen [Nursing Bedside Swallow Screen] [RC] ASDIRECTED 10/18/18 16:45 Pharmacy to Dose - Vancomycin 1 dose .XX ASDIRECTED 10/18/18 17:00 Acetaminophen [Tylenol Arthritis Pain] 650 mg PO TID@08,11,17 Propylene Glycol/Peg 400 [Systane 0.3-0.4% Eye Drops] 1 drop EYEBOTH TID@08,11 ,17 10/18/18 17:02 Loperamide [Imodium] 2 mg PO Q6H PRN 10/18/18 18:00 Enoxaparin [Lovenox] 30 mg SUBCUT Q24H Piperacillin/Tazobactam [Zosyn] 2.25 gm Sodium Chloride 0.9% [Normal Saline] 50 ml IV Q6H 10/18/18 20:00 Budesonide [Pulmicort] 0.5 mg INH BIDRT 10/18/18 21:00 B.Bif/B.Long/L.Acidoph/L.Rhamn [Multi-Danna Plus] 2 cap PO BID Baclofen [Baclofen] 2.5 mg PO BID Calcium Citrate/Vitamin D3 [Calcium Citrate + D] 1 tab PO BID ClonazePAM [KlonoPIN] 0.5 mg PO TID Fish Oil/[place]-3 Fatty Acids [Fish Oil] 2 gm PO BID Mirtazapine [Remeron] 7.5 mg PO BEDTIME Potassium Chloride [Klor-Con M20] 20 meq PO BID Sertraline [Zoloft] 150 mg PO BEDTIME Trolamine Salicylate/Aloe Vera [Aspercreme 10%] 0 gm TOP BID predniSONE 20 mg PO BID 10/18/18 22:00 Albuterol/Ipratropium [DuoNeb 3.0-0.5 MG/3 ML] 3 ml NEB QIDRT 10/18/18 Dinner Regular Diet [DIET] Thickened Liquids [DIET] 10/19/18 08:45 Sodium Chloride 0.9% @ 50 MLS/HR(1000ml) Sodium Chloride 0.9% [Normal Saline] 1 ,000 ml IV ASDIRECTED 10/19/18 09:00 Aspirin [Ecotrin] 325 mg PO DAILY Famotidine [Pepcid] 20 mg PO DAILY Losartan [Cozaar] 50 mg PO DAILY 10/19/18 21:00 Fenofibrate Nanocrystallized [Fenofibrate] 48 mg PO BEDTIME 10/20/18 05:11 BMP [BASIC METABOLIC PANEL,BMP] [CHEM] AM - Plan Plan:: HPI: This is a 77 year old female with a past history notable for cerebral palsy , COPD, and remote history of Cdiff who presented to the ED due to possible aspiration at noon on 10/18/18 and hypoxia. She resides at the [facility]. Patient states she was eating food when the coughing fit occurred. She reports chest pain with coughing. Patient was seen in the [facility] on 10/16/18 by myself due to cough and shortness of breath for the few days prior. She had lab and chest x-ray performed at that time with the following results; WBC 7.9 no neutrophilia, CMP unremarkable, BNP 48, and x-ray noting opacity in the lower 2/3 of the right lung possibly representing a large hiatal hernia or diaphragmatic hernia (chronic) and no infiltrates. She was started on levaquin 750 mg daily and DuoNebs QID for probable RLL pneumonia. Procalcitonin noted to be elevated at 0.10. This provider received a follow-up phone call from the [facility] on 10/17/18 noting increased wheezing, so she was initiated on prednisone 20 mg BID. She had work-up in the ED notable for RLL pneumonia. She was admitted for further monitoring and treatment. Pertinent ED work-up: WBC 9.6 with neutrophilia Creatinine 1.24 GFR 42 CXR-Mild right base infiltrate DuoNeb x 1 Primary assessment/plan: RLL pneumonia, present on admission, health-care acquired, rule out aspiration pneumonia. WBC 7.8 with left shift. Continue IV vancomycin and zosyn-pharmacy to dose. Continue DuoNebs QID and prednisone 20 mg po BID (5 days would be complete after PM dose on 10/21/18). Attempt to wean oxygen to keep saturations > 90%. Nursing will perform bedside swallow today and if patient fails will obtain formal x-ray swallow study with speech therapist. Acute COPD exacerbation. See plan above. Continue pulmicort nebs BID. Acute hypoxia, resolved. Acute kidney injury secondary to dehydration, resolved. Creatinine 0.62, BUN 27. Decrease IVF to NS at 50 mL/hr. Baseline creatinine 0.6-0.7. BMP in AM. Secondary assessment/plan: Voice hoarseness, persistent, unknown etiology. Initially thought to be related to stopping the PPI therapy due to Cdiff in the remote past. Trial of pepcid has not made much improvement. Consideration for ENT evaluation with nasolaryngoscopy as outpatient. This has been discussed with brother in the recent past. May need to revisit this given possible aspiration component. Chronic dysphagia. Continue with regular dental texture soft diet and honey thickened liquids. Esophageal reflux. Continue pepcid BID. HTN. Continue losartan 50 mg daily. Hypokalemia. Continue potassium 20 mEq BID. HLD. LDL 46 (September 2017). Continue fenofibrate for now and fish oil. Major depression, recurrent. Continue zoloft 150 mg at HS. Anxiety. Continue clonazepam TID. Infantile cerebral palsy. Insomnia. Continue remeron 7.5 mg at HS. Mildline low back pain with sciatica. Continue tylenol. Remote history of recurrent Cdiff infection. Continue probiotics BID. Primary osteoarthritis of multiple joints. Continue scheduled tylenol and baclofen. DVT prophylaxis. Lovenox. Overall plan: Decrease IVFs. Continue IV antibiotics. Re-evaluate swallowing. Patient would benefit from at least 3 days of IV antibiotics to cover for likely aspiration pneumonia.
[2018-10-19] MEDS ORDERED: Piperacillin/Tazobactam/Dext 50 ML IV SCH (08:57)
[2018-10-19] MEDS ORDERED: Enoxaparin 40 MG/0.4 ML Syringe SUBCUT SCH (09:10)
[2018-10-19] MEDS: Trolamine Salicylate/Aloe Vera 10% Crm 85 GM Tube TOP SCH ×2 (09:25→20:55)
[2018-10-19] MEDS: Aspirin 325 MG Tab.EC PO SCH (09:26)
[2018-10-19] MEDS: Fish Oil/Omega-3 Fatty Acids 1 Gm Cap PO SCH ×2 (09:26→21:00)
[2018-10-19] MEDS: predniSONE 20 MG Tab PO SCH ×2 (09:26→20:56)
[2018-10-19] MEDS: Acetaminophen 650 MG Tab.ER PO SCH ×3 (09:26→16:16)
[2018-10-19] MEDS: B.Bifidum/B.Longum/L.Acidophilus/L.Rhamnosus (Probiotic) Cap PO SCH ×2 (09:26→20:56)
[2018-10-19] MEDS: Calcium Citrate/Vitamin D3 315 MG-250 Unit Tab PO SCH ×2 (09:27→20:59)
[2018-10-19] MEDS: ClonazePAM 0.5 MG Tab PO SCH ×3 (09:27→20:56)
[2018-10-19] MEDS: Famotidine 20 MG Tab PO SCH (09:27)
[2018-10-19] MEDS: Potassium Chloride 20 MEQ Tab.ER PO SCH ×2 (09:27→20:56)
[2018-10-19] MEDS: Losartan 50 MG Tab PO SCH (09:29)
[2018-10-19] MEDS: Vancomycin 0.5 GM in Sodium Chloride 0.9% 250 ML IV SCH ×2 (09:29→22:04)
[2018-10-19] MEDS: Carboxymethylcellulose Sodium 0.5% Ophth Soln 15 ML Bottle EYEBOTH SCH ×4 (10:16→16:16)
[2018-10-19] MEDS: Baclofen 10 MG Tab PO SCH ×3 (10:17→20:56)
[2018-10-19] MEDS: Piperacillin/Tazobactam/Dext 3.375 GM in Premix Bag 1 BAG IV SCH ×2 (13:05→20:55)
[2018-10-19] MEDS: Sertraline 50 MG Tab PO SCH (20:56)
[2018-10-19] MEDS: Mirtazapine 15 MG Tab PO SCH (20:57)
[2018-10-19] MEDS ORDERED: Non-Formulary Medication 1 Each (Fenofibrate Nanocrystallized [Fenofibrate] 48 MG) PO SCH (21:00)
[2018-10-19] MEDS: guaiFENesin 100 MG/5 ML Soln 5 ML UD Cup PO PRN (22:40)
[2018-10-20] MEDS: Piperacillin/Tazobactam/Dext 3.375 GM in Premix Bag 1 BAG IV SCH ×4 (00:04→17:02)
[2018-10-20] MEDS: Albuterol/Ipratropium 3.0-0.5 MG/3 ML Neb Soln NEB SCH ×4 (05:26→22:10)
[2018-10-20] MEDS: Budesonide 0.5 MG/2 ML Neb Susp INH SCH ×2 (07:30→21:49)
[2018-10-20] MEDS: Enoxaparin 40 MG/0.4 ML Syringe SUBCUT SCH (08:25)
[2018-10-20] MEDS: Fish Oil/Omega-3 Fatty Acids 1 Gm Cap PO SCH ×2 (08:26→21:54)
[2018-10-20] MEDS: B.Bifidum/B.Longum/L.Acidophilus/L.Rhamnosus (Probiotic) Cap PO SCH ×2 (08:26→21:49)
[2018-10-20] MEDS: Famotidine 20 MG Tab PO SCH (08:26)
[2018-10-20] MEDS: Potassium Chloride 20 MEQ Tab.ER PO SCH ×2 (08:26→21:49)
[2018-10-20] MEDS: predniSONE 20 MG Tab PO SCH ×2 (08:26→21:50)
[2018-10-20] MEDS: Aspirin 325 MG Tab.EC PO SCH (08:27)
[2018-10-20] MEDS: ClonazePAM 0.5 MG Tab PO SCH ×3 (08:27→21:49)
[2018-10-20] MEDS: Acetaminophen 650 MG Tab.ER PO SCH ×3 (08:27→16:55)
[2018-10-20] MEDS: Baclofen 10 MG Tab PO SCH ×2 (08:27→21:50)
[2018-10-20] MEDS: Trolamine Salicylate/Aloe Vera 10% Crm 85 GM Tube TOP SCH ×2 (08:37→21:51)
[2018-10-20] MEDS: Carboxymethylcellulose Sodium 0.5% Ophth Soln 15 ML Bottle EYEBOTH SCH ×3 (08:37→16:56)
[2018-10-20] MEDS: Losartan 50 MG Tab PO SCH (08:46)
[2018-10-20 09:05] LABS: ANION GAP 16.1 mmol/L (5-15); CHLORIDE,CL 107 mmol/L (98-115); SODIUM,NA 144 mmol/L (136-145)
[2018-10-20] MEDS: Calcium Citrate/Vitamin D3 315 MG-250 Unit Tab PO SCH ×2 (09:48→21:50)
[2018-10-20] MEDS: guaiFENesin 100 MG/5 ML Soln 5 ML UD Cup PO PRN ×3 (13:37→22:07)
[2018-10-20] MEDS: Sertraline 50 MG Tab PO SCH (21:50)
[2018-10-20] MEDS: Mirtazapine 15 MG Tab PO SCH (21:50)
--- NOTE | 2018-10-20 21:56 | PCM.PN ---
- General Info Date of Service: 10/20/18 Admission Dx/Problem (Free Text): Admission Diagnosis/Problem Admission Diagnosis/Problem Pneumonia Subjective Update: Ms. Collins reports ongoing improvement today in respiratory status. Her cough is much improved and not as harsh. She denies any further shortness of breath. No choking or aspiration episodes. Appetite improved. Desires getting back to snf soon. - Patient Data Vitals - Most Recent: Last Vital Signs Temp 36.7 C 10/20/18 19:00 Pulse 89 10/20/18 19:00 Resp 18 10/20/18 19:00 BP 97/61 10/20/18 19:00 Pulse Ox 93 L 10/20/18 19:00 Weight - Most Recent: 49.124 kg I&O - Last 24 Hours: Intake & Output 10/20/18 10/20/18 10/20/18 06:59 14:59 22:59 Intake Total 438 1251 Output Total 600 100 Balance -162 1151 Lab Results Last 24 Hours: Laboratory Results - last 24 hr 10/20/18 10/20/18 Range/Units 08:35 08:35 Sodium 144 (136-145) mmol/L Potassium 3.7 (3.3-5.3) mmol/L Chloride 107 (98-115) mmol/L Carbon Dioxide 24.6 (21.0-32.0) mmol/L Anion Gap 16.1 H (5-15) mmol/L BUN 23 (6-25) mg/dL Creatinine 0.62 (0.51-1.17) mg/dL Est Cr Clr Drug Dosing 56.31 mL/min Estimated GFR (MDRD) > 60 mL/min Glucose 128 H (75 - 99) mg/dL Calcium 8.5 L (8.7-10.3) mg/dL Vancomycin Trough 11.9 (10-20) ug/mL Med Orders - Current: Current Medications Acetaminophen (Tylenol) 650 mg PO Q4H PRN PRN Reason: Pain (Mild 1-3)/fever Acetaminophen (Tylenol Arthritis Pain) 650 mg PO TID@,, [facility] Last Admin: 10/20/18 16:55 Dose: 650 mg Albuterol/Ipratropium (Duoneb 3.0-0.5 Mg/3 Ml) 3 ml NEB QIDRT [facility] Last Admin: 10/20/18 16:55 Dose: 3 ml Artificial Tears (Refresh Tears 0.5%) 0 ml EYEBOTH TID@08,,17 [facility] Last Admin: 10/20/18 16:56 Dose: 1 drop Aspirin (Ecotrin) 325 mg PO DAILY [facility] Last Admin: 10/20/18 08:27 Dose: 325 mg Baclofen (Lioresal) 2.5 mg PO BID [facility] Last Admin: 10/20/18 21:50 Dose: 2.5 mg Budesonide (Pulmicort) 0.5 mg INH BIDRT [facility] Last Admin: 10/20/18 21:49 Dose: 0.5 mg Calcium Citrate (Calcium Citrate + D) 1 tab PO BID [facility] Last Admin: 10/20/18 21:50 Dose: 1 tab Clonazepam (Klonopin) 0.5 mg PO TID [facility] Last Admin: 10/20/18 21:49 Dose: 0.5 mg Enoxaparin Sodium (Lovenox) 40 mg SUBCUT DAILY [facility] Last Admin: 10/20/18 08:25 Dose: 40 mg Famotidine (Pepcid) 20 mg PO DAILY [facility] Last Admin: 10/20/18 08:26 Dose: 20 mg Fish Oil (Fish Oil) 2 gm PO BID [facility] Last Admin: 10/20/18 08:26 Dose: 2 gm Guaifenesin (Robitussin) 100 mg PO Q4H PRN PRN Reason: Cough Last Admin: 10/20/18 17:32 Dose: 100 mg Piperacillin/Tazobactam/ (Dextrose 3.375 gm/ Premix) 50 mls @ 100 mls/hr IV Q6H [facility] Last Admin: 10/20/18 17:02 Dose: 100 mls/hr Vancomycin HCl 0.75 gm/ Sodium (Chloride) 250 mls @ 200 mls/hr IV Q12H [facility] Last Admin: 10/20/18 21:51 Dose: 200 mls/hr Lactobacillus Acidophilus/Rhamnosus (Multi-Danna Plus) 2 cap PO BID [facility] Last Admin: 10/20/18 21:49 Dose: 2 cap Loperamide HCl (Imodium) 2 mg PO Q6H PRN PRN Reason: Diarrhea Losartan Potassium (Cozaar) 50 mg PO DAILY [facility] Last Admin: 10/20/18 08:46 Dose: 50 mg Magnesium Hydroxide (Milk Of Magnesia) 30 ml PO BEDTIME PRN PRN Reason: Constipation Mirtazapine (Remeron) 7.5 mg PO BEDTIME [facility] Last Admin: 10/20/18 21:50 Dose: 7.5 mg Ondansetron HCl (Zofran Odt) 4 mg PO Q4H PRN PRN Reason: Nausea Polyethylene Glycol (Miralax) 17 gm PO DAILY PRN PRN Reason: Constipation Potassium Chloride (Klor-Con M20) 20 meq PO BID [facility] Last Admin: 10/20/18 21:49 Dose: 20 meq Prednisone (Prednisone) 20 mg PO BID [facility] Stop: 10/21/18 23:59 Last Admin: 10/20/18 21:50 Dose: 20 mg Sertraline HCl (Zoloft) 150 mg PO BEDTIME [facility] Last Admin: 10/20/18 21:50 Dose: 150 mg Trolamine Salicylate (Aspercreme 10%) 0 gm TOP BID [facility] Last Admin: 10/20/18 21:51 Dose: 1 applic Vancomycin HCl (Pharmacy To Dose - Vancomycin) 1 dose .XX ASDIRECTED [facility] Discontinued Medications Albuterol/Ipratropium (Duoneb 3.0-0.5 Mg/3 Ml) 3 ml NEB ONETIME ONE Stop: 10/18/18 14:57 Last Admin: 10/18/18 15:10 Dose: 3 ml Enoxaparin Sodium (Lovenox) 30 mg SUBCUT Q24H [facility] Last Admin: 10/18/18 17:27 Dose: 30 mg Enoxaparin Sodium (Lovenox) 40 mg SUBCUT Q24H [facility] Last Admin: 10/19/18 11:20 Dose: 40 mg Sodium Chloride (Normal Saline) 1,000 mls @ 100 mls/hr IV ASDIRECTED [facility] Last Admin: 10/19/18 06:09 Dose: 100 mls/hr Piperacillin Sod/Tazobactam (Sod 2.25 gm/ Sodium Chloride) 50 mls @ 100 mls/hr IV Q6H [facility] Last Admin: 10/18/18 19:20 Dose: Not Given Vancomycin HCl 0.5 gm/ Sodium (Chloride) 250 mls @ 500 mls/hr IV ONETIME ONE Stop: 10/18/18 18:29 Last Admin: 10/18/18 18:55 Dose: 500 mls/hr Piperacillin Sod/Tazobactam (Sod 2.25 gm/ Sodium Chloride) 50 mls @ 100 mls/hr IV Q6H [facility] Last Admin: 10/18/18 19:20 Dose: Not Given Piperacillin Sod/Tazobactam (Sod 2.25 gm/ Sodium Chloride) 50 mls @ 100 mls/hr IV Q6H [facility] Last Admin: 10/19/18 06:12 Dose: 100 mls/hr Sodium Chloride (Normal Saline) Confirm Administered Dose 50 mls @ as directed .ROUTE .STK-MED ONE Stop: 10/19/18 04:28 Last Admin: 10/19/18 04:29 Dose: Not Given Vancomycin HCl 0.5 gm/ Sodium (Chloride) 250 mls @ 300 mls/hr IV Q12H [facility] Last Admin: 10/19/18 22:04 Dose: 300 mls/hr Sodium Chloride (Normal Saline) 1,000 mls @ 50 mls/hr IV ASDIRECTED [facility] Last Admin: 10/20/18 04:24 Dose: 50 mls/hr Piperacillin/Tazobactam/Dextrose (Zosyn In Dextrose Iso-Osmotic 3.375 Gm) 50 mls @ 100 mls/hr IV Q6H [facility] Last Admin: 10/19/18 10:19 Dose: Not Given Non-Formulary Medication (Fenofibrate Nanocrystallized [Fenofibrate]) 48 mg PO BEDTIME [facility] - Exam Physical Findings Comments:: GENERAL: Elderly white female lying in hospital bed in no acute distress. HEENT: Normocephalic, atraumatic. Conjunctiva clear. Nares patent without discharge. Mucous membranes moist. NECK: No masses. CV: Regular rate and rhythm, no murmurs, rubs, or gallops. 2+ radial pulses. PULMONARY: Normal effort, diminished in bases, faint rhonchi in R base, no wheezes or rales. ABDOMEN: Positive bowel sounds, soft, nontender, nondistended. EXTREMITIES: Contractures of R upper and lower extremities. No edema, cyanosis, or clubbing. DERMATOLOGIC: No rashes or suspicious lesions in exposed areas. PSYCHIATRIC: Alert, interactive, appropriate affect - Problem List Review Problem List Initiated/Reviewed/Updated: Yes - Plan Plan:: HPI summary: Ms. Collins is a 77yoF with a past history notable for cerebral palsy, COPD, and history of recurrent C. difficile colitis who presented to the ED due to possible aspiration at noon on 10/18/18 and hypoxia. She resides at the [facility]. Patient states she was eating food when the coughing fit occurred. She reports chest pain with coughing. Patient was seen in the [facility] on 10/16/18 by ALLEN Pagan, due to cough and shortness of breath for the few days prior. She had lab and chest x-ray performed at that time with the following results: WBC 7.9 with no neutrophilia , CMP unremarkable, BNP 48, and x-ray noting opacity in the lower 2/3 of the right lung possibly representing a large hiatal hernia or diaphragmatic hernia ( chronic) and no infiltrates. She was started on levofloxacin 750 mg daily and DuoNebs QID for probable RLL pneumonia. Procalcitonin noted to be elevated at 0.10. This provider received a follow-up phone call from the snf on 10/17 noting increased wheezing, so she was initiated on prednisone 20 mg BID. ED course: She was noted to have an oxygen requirement, but otherwise with unremarkable vital signs. Lab and XR workup was notable for WBC 9.6 with neutrophilia, creatinine 1.24 with GFR 42, and CXR with R base infiltrate. She was given DuoNeb x 1. Due to oxygen requirement and need for further work-up and management, she was admitted for further monitoring and treatment. Hospitalization problems: RLL pneumonia, health-care acquired, possible aspiration pneumonia, unknown organism: Present on admission. Prior procalcitonin elevated. Concern for resistant organisms given health-care associated status and concern for aspiration given chronic dysphagia and possible aspiration event so covering for extended spectrum of organisms with Zosyn and vancomycin. - If ongoing improvement and cultures continuing to be negative, plan to switch to oral regimen with Augmentin tomorrow COPD, with acute exacerbation: Improved with minimal wheezing today. - Continue prednisone 20mg BID (day 5 of burst), DuoNebs QID, and Pulmicort BID Acute hypoxic respiratory failure: Resolved. Chronic dysphagia: With possible recent aspiration event and concern for chronic micro-aspiration. - Speech therapy evaluation - Continue with regular dental texture soft diet and honey thickened liquids Acute kidney injury: Resolved. Was secondary to mild dehydration. Baseline creatinine 0.6 and at admission was 1.24. Now back to baseline and tolerating po intake well. - D/c IVF Chronic, stable conditions: HTN: Continue losartan 50 mg daily. Esophageal reflux / Voice hoarseness: Hoarseness improved in the past few months per report of patient and brother; initially was thought to be related to stopping the PPI therapy due to C. difficile colitis in the remote past. Continue famotidine BID. - If persistent, consideration ENT evaluation with nasolaryngoscopy as outpatient Remote history of recurrent C. difficile infection: Continue probiotics BID. HLD: LDL 46 (September 2017). - Given age and use for secondary prevention, discontinue fenofibrate at discharge Hypokalemia: Continue potassium 20 mEq BID. Primary osteoarthritis of multiple joints / Mildline low back pain with sciatica : Continue scheduled Tylenol and baclofen. Infantile cerebral palsy Major depression, recurrent / Anxiety / Insomnia: Continue sertraline 150 mg at HS, mirtazapine 7.5 mg at HS, and clonazepam TID. Hospitalization details: # FEN: D/c IVF. Electrolytes normal. Soft diet with honey thickened liquids. # PPX: Enoxaparin 40mg daily for DVT ppx. Melatonin for delirium ppx. # Code status: DNR/DNI. # Emergency contact: BrotherToby, who was updated at bedside. # Disposition: Continue in inpatient status. Anticipate discharge back to [facility] tomorrow after swallow study if ongoing clinical improvement.
[2018-10-21] MEDS: Piperacillin/Tazobactam/Dext 3.375 GM in Premix Bag 1 BAG IV SCH ×2 (00:03→05:44)
[2018-10-21] MEDS: Albuterol/Ipratropium 3.0-0.5 MG/3 ML Neb Soln NEB SCH ×2 (05:56→11:13)
[2018-10-21] MEDS: Budesonide 0.5 MG/2 ML Neb Susp INH SCH (07:16)
[2018-10-21] MEDS: Famotidine 20 MG Tab PO SCH (09:49)
[2018-10-21] MEDS: B.Bifidum/B.Longum/L.Acidophilus/L.Rhamnosus (Probiotic) Cap PO SCH (09:49)
[2018-10-21] MEDS: predniSONE 20 MG Tab PO SCH (09:49)
[2018-10-21] MEDS: Enoxaparin 40 MG/0.4 ML Syringe SUBCUT SCH (09:49)
[2018-10-21] MEDS: ClonazePAM 0.5 MG Tab PO SCH (09:50)
[2018-10-21] MEDS: Baclofen 10 MG Tab PO SCH (09:50)
[2018-10-21] MEDS: Potassium Chloride 20 MEQ Tab.ER PO SCH (09:50)
[2018-10-21] MEDS: Losartan 50 MG Tab PO SCH (09:51)
[2018-10-21] MEDS: Fish Oil/Omega-3 Fatty Acids 1 Gm Cap PO SCH (09:51)
[2018-10-21] MEDS: Calcium Citrate/Vitamin D3 315 MG-250 Unit Tab PO SCH (09:51)
[2018-10-21] MEDS: Acetaminophen 650 MG Tab.ER PO SCH ×2 (09:51→12:21)
[2018-10-21] MEDS: Aspirin 325 MG Tab.EC PO SCH (09:51)
[2018-10-21] MEDS: Trolamine Salicylate/Aloe Vera 10% Crm 85 GM Tube TOP SCH (09:52)
[2018-10-21] MEDS: Carboxymethylcellulose Sodium 0.5% Ophth Soln 15 ML Bottle EYEBOTH SCH ×2 (09:52→12:21)
--- NOTE | 2018-10-21 11:42 | PCM.DCSUM1 ---
Discharge Summary - Discharge Data Discharge Date: 10/21/18 Discharge Disposition: DC/Tfer to SNF 03 Condition: Good - Patient Summary/Data Consults: Consultations 10/20/18 09:00 TEACHING MUSIC LESSONS Evaluation and Treatment [CONS] Routine - Patient Instructions Diet: Pureed (with thin liquids; OK to use straw) Activity: As Tolerated Showering/Bathing: May Shower Notify Provider of: Fever, Increased Pain, Nausea and/or Vomiting - Discharge Plan *PRESCRIPTION DRUG MONITORING PROGRAM REVIEWED*: Not Applicable *COPY OF PRESCRIPTION DRUG MONITORING REPORT IN PATIENT MELY: Not Applicable Prescriptions/Med Rec: Amoxicillin/Clavulanate K [Augmentin 875-125 MG] 1 tab PO BID 4 Days #8 tablet Home Medications: Home Meds Acetaminophen [Tylenol Arthritis Pain] 650 mg PO TID@,09/21/16 [History] ClonazePAM [KlonoPIN] 0.5 mg PO TID 09/21/16 [History] Fish Oil/[place]-3 Fatty Acids [Fish Oil 1,000 MG] 2,000 mg PO BID 09/21/16 [ History] Magnesium Hydroxide [Milk of Magnesia] 30 ml PO BEDTIME PRN 09/21/16 [History] Polyethylene Glycol 3350 [MiraLAX] 17 gm PO DAILY PRN 09/21/16 [History] Potassium Chloride 20 meq PO BID 09/21/16 [History] Sertraline HCl [Zoloft] 150 mg PO BEDTIME 09/21/16 [History] Acetaminophen [Tylenol] 650 mg PO Q4H PRN 04/21/18 [History] Aspercreme Lotion 10% 1 applic TOP BID 04/21/18 [History] Baclofen 2.5 mg PO BID 04/21/18 [History] Calamine/Zinc Oxide [Calamine Lotion] 1 applic TP TID PRN 04/21/18 [History] Calcium Carbonate/Vitamin D3 [Calcium 600-Vit D3 400 Tablet] 1 each PO BID 04/21 [History] Mirtazapine [Remeron] 7.5 mg PO BEDTIME 04/21/18 [History] Propylene Glycol/Peg 400 [Systane 0.3-0.4% Eye Drops] 1 drop EYEBOTH TID@,, 04/21/18 [History] guaiFENesin 5 ml PO Q4H PRN 04/21/18 [History] Budesonide [Pulmicort] 0.5 mg IH BID 10/18/18 [History] Famotidine [Pepcid] 20 mg PO BID 10/18/18 [History] Lactobacillus Acidophilus [Acidophilus] 2 each PO BID 10/18/18 [History] Loperamide [Imodium AD] 2 mg PO Q6H PRN 10/18/18 [History] Losartan Potassium [Cozaar] 50 mg PO DAILY 10/18/18 [History] Nystatin [Nystatin Ointment] 15 gm TOP TID PRN 10/18/18 [History] Ondansetron [Zofran ODT] 4 mg PO Q4H PRN 10/18/18 [History] Saliva Substitution Combo No.9 [Biotene] 1 ml PO DAILY PRN 10/18/18 [History] Aspirin 324 mg PO QAM 10/19/18 [History] Albuterol/Ipratropium [DuoNeb 3.0-0.5 MG/3 ML] 3 ml NEB QID PRN neb 10/21/18 [ Rx] Amoxicillin/Clavulanate K [Augmentin 875-125 MG] 1 tab PO BID 4 Days #8 tablet 10/21/18 [Rx] Referrals: Nicole Abel MD [Primary Care Provider] - (next halfway rounds) - Discharge Summary/Plan Comment DC Time >30 min.: Yes - Patient Data Vitals - Most Recent: Last Vital Signs Temp 36.3 C 10/21/18 06:24 Pulse 72 10/21/18 07:16 Resp 20 10/21/18 06:24 BP 111/55 L 10/21/18 09:51 Pulse Ox 90 L 10/21/18 09:00 Weight - Most Recent: 49.124 kg I&O - Last 24 hours: Intake & Output 10/20/18 10/21/18 10/21/18 22:59 06:59 14:59 Intake Total 235 286 Output Total 400 Balance 235 -114 Med Orders - Current: Current Medications Acetaminophen (Tylenol) 650 mg PO Q4H PRN PRN Reason: Pain (Mild 1-3)/fever Acetaminophen (Tylenol Arthritis Pain) 650 mg PO TID@08,,17 [facility] Last Admin: 05/08/19 09:51 Dose: 650 mg Albuterol/Ipratropium (Duoneb 3.0-0.5 Mg/3 Ml) 3 ml NEB QIDRT [facility] Last Admin: 10/21/18 11:13 Dose: 3 ml Artificial Tears (Refresh Tears 0.5%) 0 ml EYEBOTH TID@, [facility] Last Admin: 10/21/18 09:52 Dose: 1 drop Aspirin (Ecotrin) 325 mg PO DAILY [facility] Last Admin: 10/21/18 09:51 Dose: 325 mg Baclofen (Lioresal) 2.5 mg PO BID [facility] Last Admin: 10/21/18 09:50 Dose: 2.5 mg Budesonide (Pulmicort) 0.5 mg INH BIDRT [facility] Last Admin: 10/21/18 07:16 Dose: 0.5 mg Calcium Citrate (Calcium Citrate + D) 1 tab PO BID [facility] Last Admin: 10/21/18 09:51 Dose: 1 tab Clonazepam (Klonopin) 0.5 mg PO TID [facility] Last Admin: 10/21/18 09:50 Dose: 0.5 mg Enoxaparin Sodium (Lovenox) 40 mg SUBCUT DAILY [facility] Last Admin: 10/21/18 09:49 Dose: 40 mg Famotidine (Pepcid) 20 mg PO DAILY [facility] Last Admin: 10/21/18 09:49 Dose: 20 mg Fish Oil (Fish Oil) 2 gm PO BID [facility] Last Admin: 10/21/18 09:51 Dose: 2 gm Guaifenesin (Robitussin) 100 mg PO Q4H PRN PRN Reason: Cough Last Admin: 10/20/18 22:07 Dose: 100 mg Piperacillin/Tazobactam/ (Dextrose 3.375 gm/ Premix) 50 mls @ 100 mls/hr IV Q6H [facility] Last Admin: 10/21/18 05:44 Dose: 100 mls/hr Vancomycin HCl 0.75 gm/ Sodium (Chloride) 250 mls @ 200 mls/hr IV Q12H [facility] Last Admin: 10/21/18 09:48 Dose: 200 mls/hr Lactobacillus Acidophilus/Rhamnosus (Multi-Danna Plus) 2 cap PO BID [facility] Last Admin: 10/21/18 09:49 Dose: 2 cap Loperamide HCl (Imodium) 2 mg PO Q6H PRN PRN Reason: Diarrhea Losartan Potassium (Cozaar) 50 mg PO DAILY [facility] Last Admin: 10/21/18 09:51 Dose: 50 mg Magnesium Hydroxide (Milk Of Magnesia) 30 ml PO BEDTIME PRN PRN Reason: Constipation Mirtazapine (Remeron) 7.5 mg PO BEDTIME [facility] Last Admin: 10/20/18 21:50 Dose: 7.5 mg Ondansetron HCl (Zofran Odt) 4 mg PO Q4H PRN PRN Reason: Nausea Polyethylene Glycol (Miralax) 17 gm PO DAILY PRN PRN Reason: Constipation Potassium Chloride (Klor-Con M20) 20 meq PO BID [facility] Last Admin: 10/21/18 09:50 Dose: 20 meq Prednisone (Prednisone) 20 mg PO BID [facility] Stop: 10/21/18 23:59 Last Admin: 10/21/18 09:49 Dose: 20 mg Sertraline HCl (Zoloft) 150 mg PO BEDTIME [facility] Last Admin: 10/20/18 21:50 Dose: 150 mg Trolamine Salicylate (Aspercreme 10%) 0 gm TOP BID [facility] Last Admin: 10/21/18 09:52 Dose: 1 applic Vancomycin HCl (Pharmacy To Dose - Vancomycin) 1 dose .XX ASDIRECTED [facility] Discontinued Medications Albuterol/Ipratropium (Duoneb 3.0-0.5 Mg/3 Ml) 3 ml NEB ONETIME ONE Stop: 10/18/18 14:57 Last Admin: 10/18/18 15:10 Dose: 3 ml Enoxaparin Sodium (Lovenox) 30 mg SUBCUT Q24H [facility] Last Admin: 10/18/18 17:27 Dose: 30 mg Enoxaparin Sodium (Lovenox) 40 mg SUBCUT Q24H [facility] Last Admin: 10/19/18 11:20 Dose: 40 mg Sodium Chloride (Normal Saline) 1,000 mls @ 100 mls/hr IV ASDIRECTED [facility] Last Admin: 10/19/18 06:09 Dose: 100 mls/hr Piperacillin Sod/Tazobactam (Sod 2.25 gm/ Sodium Chloride) 50 mls @ 100 mls/hr IV Q6H [facility] Last Admin: 10/18/18 19:20 Dose: Not Given Vancomycin HCl 0.5 gm/ Sodium (Chloride) 250 mls @ 500 mls/hr IV ONETIME ONE Stop: 10/18/18 18:29 Last Admin: 10/18/18 18:55 Dose: 500 mls/hr Piperacillin Sod/Tazobactam (Sod 2.25 gm/ Sodium Chloride) 50 mls @ 100 mls/hr IV Q6H [facility] Last Admin: 10/18/18 19:20 Dose: Not Given Piperacillin Sod/Tazobactam (Sod 2.25 gm/ Sodium Chloride) 50 mls @ 100 mls/hr IV Q6H [facility] Last Admin: 10/19/18 06:12 Dose: 100 mls/hr Sodium Chloride (Normal Saline) Confirm Administered Dose 50 mls @ as directed .ROUTE .STK-MED ONE Stop: 10/19/18 04:28 Last Admin: 10/19/18 04:29 Dose: Not Given Vancomycin HCl 0.5 gm/ Sodium (Chloride) 250 mls @ 300 mls/hr IV Q12H [facility] Last Admin: 10/19/18 22:04 Dose: 300 mls/hr Sodium Chloride (Normal Saline) 1,000 mls @ 50 mls/hr IV ASDIRECTED [facility] Last Admin: 10/20/18 04:24 Dose: 50 mls/hr Piperacillin/Tazobactam/Dextrose (Zosyn In Dextrose Iso-Osmotic 3.375 Gm) 50 mls @ 100 mls/hr IV Q6H [facility] Last Admin: 10/19/18 10:19 Dose: Not Given Non-Formulary Medication (Fenofibrate Nanocrystallized [Fenofibrate]) 48 mg PO BEDTIME [facility]
--- NOTE | 2018-10-21 12:49 | CR ---
[id number] RAD/RAD Video Swallow Study Exam: RAD Video Swallow Study Clinical Data: DIFFICULTY SWALLOWING COMPARISON: CORRELATION IS MADE WITH THE EXAM OF APRIL 29, 2018. FINDINGS: The exam was performed by a certified technologist and speech pathologist in the patient's hometown. Multiple consistencies were presented to the patient. Residuals were identified. There was no aspiration or penetration during the exam. Deglutition was abnormal. IMPRESSION: PATIENT AT MILD RISK FOR ASPIRATION PNEUMONIA. Jay Jordan MD 10/21/18 1368 Thank you for allowing us to participate in the care of your patient.
[2018-10-21 13:19] VITALS: BP 152/78
== END 2018-10-21 14:10 | DRG 193 ==
LOC: KA.ED 14:13 → KA.MS 15:22 → KA.ED 15:40
PROVIDERS: ADMIT Physician Assistant Surgical; ATTEND Family Medicine
DX: J18.1 Lobar pneumonia, unspecified organism (principal); J96.01 Acute respiratory failure with hypoxia; J44.1 Chronic obstructive pulmonary disease with (acute) exacerbation; N17.9 Acute kidney failure, unspecified; G80.9 Cerebral palsy, unspecified; I10 Essential (primary) hypertension; K59.09 Other constipation; M19.91 Primary osteoarthritis, unspecified site; F41.9 Anxiety disorder, unspecified; F32.9 Major depressive disorder, single episode, unspecified; Z96.659 Presence of unspecified artificial knee joint; E86.0 Dehydration; K21.9 Gastro-esophageal reflux disease without esophagitis; G47.00 Insomnia, unspecified; E78.5 Hyperlipidemia, unspecified; E87.6 Hypokalemia; R49.0 Dysphonia; Z79.52 Long term (current) use of systemic steroids; Z79.82 Long term (current) use of aspirin
CPT/HCPCS: 36415; 71045; 74230; 80048; 80053; 80202; 85025; 92526-GN; 92610-GN; 92611-GN; 94640; 99284; 99285-25; A9270-GY; J1650; J2543; J3370; J7030; J7050; J7620-GY

== ENCOUNTER 2019-03-19 12:57 | Inpatient (IN) | payer MEDICARE, MEDICAID ==
[2019-03-19] MEDS ORDERED: methylPREDNISolone Sodium Succinate 125 MG/2 ML SDV IV ONE (14:00)
[2019-03-19] MEDS: Sodium Chloride 0.9% 50 ML IV PRN (15:21)
[2019-03-19] MEDS: Azithromycin 500 MG in Sodium Chloride 0.9% 250 ML IV SCH (15:22)
[2019-03-19] MEDS: Albuterol/Ipratropium 3.0-0.5 MG/3 ML Neb Soln NEB SCH ×2 (16:30→21:42)
[2019-03-19] MEDS: Arformoterol 15 MCG/2 ML Neb Soln NEB SCH (20:51)
[2019-03-19] MEDS: Calcium Citrate/Vitamin D3 315 MG-250 Unit Tab PO SCH (21:04)
[2019-03-19] MEDS: ClonazePAM 0.5 MG Tab PO SCH (21:05)
[2019-03-19] MEDS: Potassium Chloride 20 MEQ Tab.ER PO SCH (21:05)
[2019-03-19] MEDS: B.Bifidum/B.Longum/L.Acidophilus/L.Rhamnosus (Probiotic) Cap PO SCH (21:07)
[2019-03-19] MEDS: guaiFENesin 600 MG Tab.ER PO SCH (21:07)
[2019-03-19] MEDS: Mirtazapine 15 MG Tab PO SCH (21:08)
[2019-03-19] MEDS: Famotidine 20 MG Tab PO SCH (21:08)
[2019-03-19] MEDS: Sertraline 50 MG Tab PO SCH (21:09)
[2019-03-19] MEDS: Baclofen 10 MG Tab PO SCH (21:15)
[2019-03-19] MEDS: Budesonide 0.5 MG/2 ML Neb Susp NEB SCH (21:17)
[2019-03-20] MEDS ORDERED: Acetaminophen 325 MG Tab PO PRN (03:36)
[2019-03-20] MEDS: Albuterol/Ipratropium 3.0-0.5 MG/3 ML Neb Soln NEB SCH ×4 (06:02→22:06)
[2019-03-20] MEDS: Arformoterol 15 MCG/2 ML Neb Soln NEB SCH (07:39)
[2019-03-20] MEDS: Carboxymethylcellulose Sodium 0.5% Ophth Soln 15 ML Bottle EYEBOTH SCH ×3 (07:43→17:14)
[2019-03-20 08:12] LABS: ANION GAP 11.5 mmol/L (5-15); CHLORIDE,CL 110 mmol/L (98-115); SODIUM,NA 146 mmol/L (136-145)
[2019-03-20] MEDS: Budesonide 0.5 MG/2 ML Neb Susp NEB SCH ×2 (08:47→20:17)
[2019-03-20] MEDS ORDERED: Aspirin 325 MG Tab.EC PO SCH (09:00)
[2019-03-20] MEDS: Baclofen 10 MG Tab PO SCH ×2 (09:13→20:17)
[2019-03-20] MEDS: ClonazePAM 0.5 MG Tab PO SCH ×2 (09:14→20:17)
[2019-03-20] MEDS: Losartan 50 MG Tab PO SCH (09:14)
[2019-03-20] MEDS: Potassium Chloride 20 MEQ Tab.ER PO SCH ×2 (09:15→20:17)
[2019-03-20] MEDS: Famotidine 20 MG Tab PO SCH ×2 (09:19→20:18)
[2019-03-20] MEDS: guaiFENesin 600 MG Tab.ER PO SCH ×2 (09:19→20:17)
[2019-03-20] MEDS: Calcium Citrate/Vitamin D3 315 MG-250 Unit Tab PO SCH ×2 (09:19→20:17)
[2019-03-20] MEDS: B.Bifidum/B.Longum/L.Acidophilus/L.Rhamnosus (Probiotic) Cap PO SCH ×2 (09:22→20:17)
[2019-03-20] MEDS ORDERED: methylPREDNISolone Sodium Succinate 125 MG/2 ML SDV IVPUSH ONE (11:27)
--- NOTE | 2019-03-20 11:36 | PCM.PN ---
- General Info Date of Service: 03/20/19 Subjective Update: Ms. Collins reports improved breathing today, though not yet to baseline. Minimal to no sputum production. Tolerating diet well. No new symptoms. Nursing reports no concerns. - Patient Data Vitals - Most Recent: Last Vital Signs Temp 36.0 C 03/20/19 11:00 Pulse 57 L 03/20/19 11:00 Resp 24 H 03/20/19 11:00 BP 154/76 H 03/20/19 11:00 Pulse Ox 92 L 03/20/19 11:00 Weight - Most Recent: 69.853 kg I&O - Last 24 Hours: Intake & Output 03/19/19 03/20/19 03/20/19 22:59 06:59 14:59 Intake Total 760 Output Total 200 250 Balance 560 -250 Lab Results Last 24 Hours: Laboratory Results - last 24 hr 03/20/19 03/20/19 Range/Units 07:05 07:05 WBC 8.95 (5.00-10.00) 10^3/uL RBC 4.08 (3.80-5.50) 10^6/uL Hgb 12.2 (12.0-16.0) g/dL Hct 38.2 (37.0-47.0) % MCV 93.6 H D (82.0-92.0) fL MCH 29.9 (27.0-31.0) pg MCHC 31.9 L (32.0-36.0) g/dL RDW 13.1 (11.5-14.5) % Plt Count 144 L (150-400) 10^3/uL MPV 9.0 (7.4-10.4) fL Immature Gran % (Auto) 0.7 (0.0-5.0) % Neut % (Auto) 69.9 (50.0-70.0) % Lymph % (Auto) 18.8 L (20.0-40.0) % [place] % (Auto) 10.5 H (2.0-8.0) % Eos % (Auto) 0.0 L (1.0-3.0) % Baso % (Auto) 0.1 (0.0-1.0) % Immature Gran # (Auto) 0.06 (0.00-0.50) 10^3/uL Neut # (Auto) 6.26 (2.50-7.00) 10^3/uL Lymph # (Auto) 1.68 (1.00-4.00) 10^3/uL [facility] # (Auto) 0.94 H (0.10-0.80) 10^3/uL Eos # (Auto) 0.00 L (0.10-0.30) 10^3/uL Baso # (Auto) 0.01 (0.00-0.10) 10^3/uL Sodium 146 H (136-145) mmol/L Potassium 3.9 (3.3-5.3) mmol/L Chloride 110 (98-115) mmol/L Carbon Dioxide 28.4 (21.0-32.0) mmol/L Anion Gap 11.5 (5-15) mmol/L BUN 25 (6-25) mg/dL Creatinine 0.51 (0.51-1.17) mg/dL Est Cr Clr Drug Dosing 67.41 mL/min Estimated GFR (MDRD) > 60 mL/min Glucose 82 (75 - 99) mg/dL Calcium 9.2 (8.7-10.3) mg/dL Med Orders - Current: Current Medications Acetaminophen (Tylenol) 650 mg PO Q4H PRN PRN Reason: Pain (mild 1-3) Last Admin: 03/20/19 03:45 Dose: 650 mg Albuterol/Ipratropium (Duoneb 3.0-0.5 Mg/3 Ml) 3 ml NEB QIDRT [facility] Last Admin: 03/20/19 06:02 Dose: 3 ml Artificial Tears (Refresh Tears 0.5%) 0 ml EYEBOTH TID@,,17 [facility] Last Admin: 03/20/19 07:43 Dose: 1 drop Aspirin (Ecotrin) 325 mg PO DAILY [facility] Last Admin: 03/20/19 09:23 Dose: 325 mg Baclofen (Lioresal) 2.5 mg PO BID [facility] Last Admin: 03/20/19 09:13 Dose: 2.5 mg Budesonide (Pulmicort) 0.5 mg NEB BID@829,2029 [facility] Last Admin: 03/20/19 08:47 Dose: 0.5 mg Calcium Citrate (Calcium Citrate + D) 1 tab PO BID [facility] Last Admin: 03/20/19 09:19 Dose: 1 tab Clonazepam (Klonopin) 0.5 mg PO BID [facility] Last Admin: 03/20/19 09:14 Dose: 0.5 mg Famotidine (Pepcid) 20 mg PO BID [facility] Last Admin: 03/20/19 09:19 Dose: 20 mg Guaifenesin (Mucinex) 600 mg PO BID [facility] Last Admin: 03/20/19 09:19 Dose: 600 mg Azithromycin 500 mg/ Sodium (Chloride) 250 mls @ 250 mls/hr IV Q24H [facility] Last Admin: 03/19/19 15:22 Dose: 250 mls/hr Sodium Chloride (Normal Saline) 50 mls @ 20 mls/hr IV ASDIRECTED PRN PRN Reason: FLUSH Last Admin: 03/19/19 15:21 Dose: 20 mls/hr Lactobacillus Acidophilus/Rhamnosus (Multi-Danna Plus) 2 cap PO BID [facility] Last Admin: 03/20/19 09:22 Dose: 2 cap Losartan Potassium (Cozaar) 50 mg PO DAILY [facility] Last Admin: 03/20/19 09:14 Dose: 50 mg Methylprednisolone Sodium Succinate (Solu-Medrol) 125 mg IVPUSH ONETIME ONE Stop: 03/20/19 11:28 Mirtazapine (Remeron) 15 mg PO BEDTIME [facility] Last Admin: 03/19/19 21:08 Dose: 15 mg Potassium Chloride (Klor-Con M20) 20 meq PO BID [facility] Last Admin: 03/20/19 09:15 Dose: 20 meq Sertraline HCl (Zoloft) 150 mg PO BEDTIME [facility] Last Admin: 03/19/19 21:09 Dose: 150 mg Sodium Chloride (Saline Flush) 10 ml FLUSH Q8HR PRN PRN Reason: keep vein open Discontinued Medications Arformoterol Tartrate (Brovana) 15 mcg NEB BIDRT [facility] Last Admin: 03/20/19 07:39 Dose: 15 mcg Methylprednisolone Sodium Succinate (Solu-Medrol) 80 mg IV ONETIME ONE Stop: 03/19/19 14:01 Last Admin: 03/19/19 14:33 Dose: 80 mg - Exam Physical Findings Comments:: GENERAL: Elderly white female lying in hospital bed in no acute distress. HEENT: Normocephalic, atraumatic. Conjunctiva clear. Nasal cannula in place. Mucous membranes moist. NECK: No masses. CV: Regular rate and rhythm, no murmurs, rubs, or gallops. 2+ radial pulses. PULMONARY: Normal effort, diminished in bases R>L, diffuse expiratory wheezes with interval improvement since day of admission. ABDOMEN: Positive bowel sounds, soft, nontender, nondistended. EXTREMITIES: Contractures of R upper and lower extremities. No edema, cyanosis, or clubbing. DERMATOLOGIC: No rashes or suspicious lesions in exposed areas. PSYCHIATRIC: Alert, interactive, appropriate affect. - Problem List Review Problem List Initiated/Reviewed/Updated: Yes - My Orders Last 24 Hours: My Active Orders 03/19/19 Dinner Regular Diet [DIET] 03/20/19 03:36 Acetaminophen [Tylenol] 650 mg PO Q4H PRN 03/20/19 11:18 Communication Order [RC] 0900,2100 03/20/19 11:27 methylPREDNISolone Sod Succ [Solu-MEDROL] 125 mg IVPUSH ONETIME ONE - Assessment Assessment:: HPI summary: Ms. Collins is a 77yoF with a past history notable for cerebral palsy, COPD, and history of recurrent C. difficile colitis who resides at [facility]. She was seen by Sarah Rudolph PA-C, on 03/16/19 on rounds at which point she was started on a prednisone burst and azithromycin for COPD exacerbation and possible early pneumonia. She had persistent shortness of breath and wheezing for which she was seen at the [facility] by ALLEN Otero, on 03/19/19, and due to lack of improvement and diffuse wheezing , was admitted for COPD exacerbation and pneumonia. Hospitalization problems and plan: # Acute hypoxic respiratory failure # COPD, with acute exacerbation # RUL pneumonia Overall improvement in respiratory status since admission, but with persistent diffuse wheezing and oxygen requirement. Improvement likely related to scheduled DuoNebs and SoluMedrol dose given on admission. Persistence of wheezing and independent review of CXR favors element of pneumonia, likely of RUL, for which her hx of recurrent C. difficile colitis makes starting typical regimen for healthcare associated pneumonia difficult, but will escalate dose of SoluMedrol to 125mg and add ceftriaxone. Outpatient COPD regimen noted to have LABA and ICS with scheduled DuoNebs, so would likely benefit from addition of LAMA with DuoNebs changed to prn. - Wean oxygen as able - Continue azithromycin 500mg daily - Add ceftriaxone 1gm daily - SoluMedrol 125mg today - Continue DuoNebs QID - Hold Brovana while inpatient since receiving DuoNebs QID - Continue Pulmicort - Change outpatient COPD inhaler regimen to include LAMA and change DuoNebs to prn - Continue Mucinex BID Chronic, stable conditions: # HTN: Continue losartan 50 mg daily. # Esophageal reflux: Continue famotidine BID. # Chronic dysphagia: Prior speech evaluation and swallow study 10/2018 OK with thin liquids with straw and soft diet. # Remote history of recurrent C. difficile infection: Continue probiotics BID. # Hypokalemia: Continue potassium 20 mEq BID. # Primary osteoarthritis of multiple joints / [place] low back pain with sciatica: Continue scheduled Tylenol. # Infantile cerebral palsy with contractures: Continue baclofen. # Major depression, recurrent / Anxiety / Insomnia: Continue sertraline 150 mg at HS, mirtazapine 7.5 mg at HS, and clonazepam TID. # Dry eyes: Continue artificial tears. # Prevention: Continue Ca/D. Stop ASA. Hospitalization details: # FEN: No IVF. Electrolytes normal. Soft diet. # PPX: Enoxaparin 40mg daily for DVT ppx. Melatonin for delirium ppx. # Code status: DNR/DNI. # Emergency contact: Toby Hung, who was updated via phone after rounds. # Disposition: Continue in inpatient status. Anticipate discharge back to [facility] in the next 1-2 days if ongoing clinical improvement.
[2019-03-20] MEDS: Sodium Chloride 0.9% 10 ML Syringe FLUSH PRN ×2 (12:58→13:40)
[2019-03-20] MEDS: cefTRIAXone 1 GM Vial IVPUSH SCH (13:39)
[2019-03-20] MEDS: Azithromycin 500 MG in Sodium Chloride 0.9% 250 ML IV SCH (14:36)
[2019-03-20] MEDS: Enoxaparin 40 MG/0.4 ML Syringe SUBCUT SCH (18:11)
[2019-03-20] MEDS: Mirtazapine 15 MG Tab PO SCH (20:17)
[2019-03-20] MEDS: Melatonin 3 MG Tab PO SCH (20:17)
[2019-03-20] MEDS: Sertraline 50 MG Tab PO SCH (20:22)
[2019-03-21] MEDS: Albuterol/Ipratropium 3.0-0.5 MG/3 ML Neb Soln NEB SCH ×4 (05:43→22:02)
[2019-03-21] MEDS: Sodium Chloride 0.9% 10 ML Syringe FLUSH PRN ×2 (05:45→19:46)
[2019-03-21] MEDS: Carboxymethylcellulose Sodium 0.5% Ophth Soln 15 ML Bottle EYEBOTH SCH ×3 (09:05→16:31)
[2019-03-21] MEDS: Baclofen 10 MG Tab PO SCH ×2 (09:06→20:12)
[2019-03-21] MEDS: Potassium Chloride 20 MEQ Tab.ER PO SCH ×2 (09:06→20:12)
[2019-03-21] MEDS: B.Bifidum/B.Longum/L.Acidophilus/L.Rhamnosus (Probiotic) Cap PO SCH ×2 (09:06→20:11)
[2019-03-21] MEDS: Calcium Citrate/Vitamin D3 315 MG-250 Unit Tab PO SCH ×2 (09:07→20:11)
[2019-03-21] MEDS: guaiFENesin 600 MG Tab.ER PO SCH ×2 (09:08→20:11)
[2019-03-21] MEDS: Famotidine 20 MG Tab PO SCH ×2 (09:08→20:11)
[2019-03-21] MEDS: ClonazePAM 0.5 MG Tab PO SCH ×2 (09:08→20:12)
[2019-03-21] MEDS: Budesonide 0.5 MG/2 ML Neb Susp NEB SCH ×2 (09:08→19:42)
[2019-03-21] MEDS: Losartan 50 MG Tab PO SCH (09:08)
[2019-03-21 11:30] LABS: ANION GAP 13.1 mmol/L (5-15); CHLORIDE,CL 109 mmol/L (98-115); SODIUM,NA 144 mmol/L (136-145)
[2019-03-21] MEDS: predniSONE 20 MG Tab PO SCH (12:05)
[2019-03-21] MEDS: cefTRIAXone 1 GM Vial IVPUSH SCH (12:09)
[2019-03-21] MEDS: Azithromycin 500 MG in Sodium Chloride 0.9% 250 ML IV SCH (13:51)
[2019-03-21] MEDS: Sodium Chloride 0.9% 50 ML IV PRN (13:54)
--- NOTE | 2019-03-21 14:21 | PCM.PN ---
- General Info Date of Service: 03/21/19 Subjective Update: Ms. Collins reports ongoing improved breathing today, though not yet to baseline. Minimal to no sputum production. Chest wall pain with coughing persists. Tolerating diet. No new symptoms. Nursing reports no concerns. - Patient Data Vitals - Most Recent: Last Vital Signs Temp 36.2 C 03/21/19 11:00 Pulse 77 03/21/19 11:00 Resp 24 H 03/21/19 11:00 BP 129/74 03/21/19 11:00 Pulse Ox 94 L 03/21/19 11:00 Weight - Most Recent: 69.853 kg I&O - Last 24 Hours: Intake & Output 03/20/19 03/21/19 03/21/19 22:59 06:59 14:59 Intake Total 450 175 Balance 450 175 Lab Results Last 24 Hours: Laboratory Results - last 24 hr 03/21/19 03/21/19 03/21/19 Range/Units 11:00 11:00 11:00 WBC 10.02 H (5.00-10.00) 10^3/uL RBC 4.12 (3.80-5.50) 10^6/uL Hgb 12.5 (12.0-16.0) g/dL Hct 38.3 (37.0-47.0) % MCV 93.0 H (82.0-92.0) fL MCH 30.3 (27.0-31.0) pg MCHC 32.6 (32.0-36.0) g/dL RDW 13.0 (11.5-14.5) % Plt Count 139 L (150-400) 10^3/uL MPV 9.3 (7.4-10.4) fL Immature Gran % (Auto) 0.5 (0.0-5.0) % Neut % (Auto) 70.3 H (50.0-70.0) % Lymph % (Auto) 21.5 (20.0-40.0) % [place] % (Auto) 7.5 (2.0-8.0) % Eos % (Auto) 0.1 L (1.0-3.0) % Baso % (Auto) 0.1 (0.0-1.0) % Immature Gran # (Auto) 0.05 (0.00-0.50) 10^3/uL Neut # (Auto) 7.05 H (2.50-7.00) 10^3/uL Lymph # (Auto) 2.15 (1.00-4.00) 10^3/uL [place] # (Auto) 0.75 (0.10-0.80) 10^3/uL Eos # (Auto) 0.01 L (0.10-0.30) 10^3/uL Baso # (Auto) 0.01 (0.00-0.10) 10^3/uL ESR 50 H (0-20) mm/hr Sodium 144 (136-145) mmol/L Potassium 3.7 (3.3-5.3) mmol/L Chloride 109 (98-115) mmol/L Carbon Dioxide 25.6 (21.0-32.0) mmol/L Anion Gap 13.1 (5-15) mmol/L BUN 36 H (6-25) mg/dL Creatinine 0.52 (0.51-1.17) mg/dL Est Cr Clr Drug Dosing 66.11 mL/min Estimated GFR (MDRD) > 60 mL/min Glucose 115 H (75 - 99) mg/dL Calcium 9.4 (8.7-10.3) mg/dL C-Reactive Protein < 0.2 (0.0-0.9) mg/dL B-Natriuretic Peptide 115 H (0-100) pg/mL Ralph Results Last 24 Hours: Microbiology 03/19/19 14:20 Aerobic Blood Culture - Preliminary Blood - Venous - Lab Draw NO GROWTH AFTER 1 DAY Anaerobic Blood Culture - Preliminary NO GROWTH AFTER 1 DAY 03/19/19 13:55 Aerobic Blood Culture - Preliminary Blood - Venous NO GROWTH AFTER 1 DAY Anaerobic Blood Culture - Preliminary NO GROWTH AFTER 1 DAY Med Orders - Current: Current Medications Acetaminophen (Tylenol) 650 mg PO Q4H PRN PRN Reason: Pain (mild 1-3) Last Admin: 03/20/19 03:45 Dose: 650 mg Albuterol/Ipratropium (Duoneb 3.0-0.5 Mg/3 Ml) 3 ml NEB QIDRT [facility] Last Admin: 03/21/19 10:57 Dose: 3 ml Artificial Tears (Refresh Tears 0.5%) 0 ml EYEBOTH TID@,,17 [facility] Last Admin: 03/21/19 10:59 Dose: 1 drop Baclofen (Lioresal) 2.5 mg PO BID [facility] Last Admin: 03/21/19 09:06 Dose: 2.5 mg Budesonide (Pulmicort) 0.5 mg NEB BID@0830,2030 [facility] Last Admin: 03/21/19 09:08 Dose: 0.5 mg Calcium Citrate (Calcium Citrate + D) 1 tab PO BID [facility] Last Admin: 03/21/19 09:07 Dose: 1 tab Ceftriaxone Sodium (Rocephin) 1 gm IVPUSH Q24H [facility] Last Admin: 03/21/19 12:09 Dose: 1 gm Clonazepam (Klonopin) 0.5 mg PO BID [facility] Last Admin: 03/21/19 09:08 Dose: 0.5 mg Enoxaparin Sodium (Lovenox) 40 mg SUBCUT Q24H [facility] Last Admin: 03/20/19 18:11 Dose: 40 mg Famotidine (Pepcid) 20 mg PO BID [facility] Last Admin: 03/21/19 09:08 Dose: 20 mg Guaifenesin (Mucinex) 600 mg PO BID [facility] Last Admin: 03/21/19 09:08 Dose: 600 mg Azithromycin 500 mg/ Sodium (Chloride) 250 mls @ 250 mls/hr IV Q24H [facility] Last Admin: 03/21/19 13:51 Dose: 250 mls/hr Sodium Chloride (Normal Saline) 50 mls @ 20 mls/hr IV ASDIRECTED PRN PRN Reason: FLUSH Last Admin: 03/21/19 13:54 Dose: 20 mls/hr Lactobacillus Acidophilus/Rhamnosus (Multi-Danna Plus) 2 cap PO BID [facility] Last Admin: 03/21/19 09:06 Dose: 2 cap Losartan Potassium (Cozaar) 50 mg PO DAILY [facility] Last Admin: 03/21/19 09:08 Dose: 50 mg Melatonin (Melatonin) 3 mg PO BEDTIME [facility] Last Admin: 03/20/19 20:17 Dose: 3 mg Mirtazapine (Remeron) 15 mg PO BEDTIME [facility] Last Admin: 03/20/19 20:17 Dose: 15 mg Potassium Chloride (Klor-Con M20) 20 meq PO BID [facility] Last Admin: 03/21/19 09:06 Dose: 20 meq Prednisone (Prednisone) 40 mg PO WITHBREAKFAST [facility] Last Admin: 03/21/19 12:05 Dose: 40 mg Sertraline HCl (Zoloft) 150 mg PO BEDTIME [facility] Last Admin: 03/20/19 20:22 Dose: 150 mg Sodium Chloride (Saline Flush) 10 ml FLUSH Q8HR PRN PRN Reason: keep vein open Last Admin: 03/21/19 05:45 Dose: 10 ml Discontinued Medications Arformoterol Tartrate (Brovana) 15 mcg NEB BIDRT [facility] Last Admin: 03/20/19 07:39 Dose: 15 mcg Aspirin (Ecotrin) 325 mg PO DAILY [facility] Last Admin: 03/20/19 09:23 Dose: 325 mg Methylprednisolone Sodium Succinate (Solu-Medrol) 80 mg IV ONETIME ONE Stop: 03/19/19 14:01 Last Admin: 03/19/19 14:33 Dose: 80 mg Methylprednisolone Sodium Succinate (Solu-Medrol) 125 mg IVPUSH ONETIME ONE Stop: 03/20/19 11:28 Last Admin: 03/20/19 12:58 Dose: 125 mg - Exam Physical Findings Comments:: GENERAL: Elderly white female lying in hospital bed in no acute distress. HEENT: Normocephalic, atraumatic. Conjunctiva clear. Nasal cannula in place. Mucous membranes moist. NECK: No masses. CV: Regular rate and rhythm, no murmurs, rubs, or gallops. 2+ radial pulses. PULMONARY: Normal effort, diminished in bases R>L, scattered expiratory wheezes with interval improvement since day of admission. ABDOMEN: Positive bowel sounds, soft, nontender, nondistended. EXTREMITIES: Contractures of R upper and lower extremities. No edema, cyanosis, or clubbing. DERMATOLOGIC: No rashes or suspicious lesions in exposed areas. PSYCHIATRIC: Alert, interactive, appropriate affect. - Problem List Review Problem List Initiated/Reviewed/Updated: Yes - My Orders Last 24 Hours: My Active Orders 03/20/19 18:00 Enoxaparin [Lovenox] 40 mg SUBCUT Q24H 03/20/19 21:00 Melatonin 3 mg PO BEDTIME 03/21/19 08:00 predniSONE 40 mg PO WITHBREAKFAST 03/21/19 10:42 Incentive Spirometry [RT Incentive Spirometry] [RC] Q1HWA 03/21/19 11:00 PROCALCITONIN [REF] Routine - Assessment Assessment:: HPI summary: Ms. Collins is a 77yoF with a past history notable for COPD, history of recurrent C. difficile colitis, and cerebral palsy who resides at [facility]. She was seen by Sarah Rudolph PA-C, on 03/16/19 on rounds at which point she was started on a prednisone burst and azithromycin for COPD exacerbation and possible early pneumonia. She had persistent shortness of breath and wheezing for which she was seen at the [facility] by ALLEN Otero, on 03/19/19, and due to lack of improvement and diffuse wheezing , was admitted for COPD exacerbation and pneumonia. Hospitalization problems and plan: # Acute hypoxic respiratory failure # COPD, with acute exacerbation # RUL pneumonia Improvement in respiratory status since admission, but not yet to baseline given persistent wheezing, albeit improved, and oxygen requirement. Improvement likely predominantly related to scheduled DuoNebs and SoluMedrol. On hospital day #2, due to persistence of wheezing and CXR with possible RUL pneumonia, antibiotic regimen was escalated from azithromycin exclusively to azithromycin and ceftriaxone. On hospital day #3, CBC, BMP, BNP, CRP, and ESR obtained with no evidence of fluid overload or lingering infection. Of note, outpatient COPD regimen noted to have LABA and ICS with scheduled DuoNebs, so would likely benefit from addition of LAMA with DuoNebs changed to prn. - Wean oxygen as able; may need to be discharged back to SNF for further titration off oxygen if not liberated in the next day - Discontinue azithromycin 500mg (day #6 today) - Ceftriaxone 1gm today (day #2), with plan to change to Augmentin 875-125mg BID for 5 days to complete 7 day course - Prednisone 40mg today, with plan to prescribe taper at discharge - Continue Mucinex BID - Continue DuoNebs QID - Continue Pulmicort - Hold Brovana while inpatient since receiving DuoNebs QID - Change outpatient COPD inhaler regimen to Trelegy (and discontinue Pulmicort and Brovana) and change DuoNebs to prn Chronic, stable conditions: # HTN: Continue losartan 50 mg daily. # Esophageal reflux: Continue famotidine BID. # Chronic dysphagia: Prior speech evaluation and swallow study 10/2018 OK with thin liquids with straw and soft diet. # Remote history of recurrent C. difficile infection: Continue probiotics BID. # Hypokalemia: Continue potassium 20 mEq BID. # Primary osteoarthritis of multiple joints / Mildline low back pain with sciatica: Continue scheduled Tylenol. # Infantile cerebral palsy with contractures: Continue baclofen. # Major depression, recurrent / Anxiety / Insomnia: Continue sertraline 150 mg at HS, mirtazapine 7.5 mg at HS, and clonazepam TID. # Dry eyes: Continue artificial tears. # Prevention: Continue Ca/D. Stop ASA. Hospitalization details: # FEN: No IVF. Electrolytes normal. Soft diet. # PPX: Enoxaparin 40mg daily for DVT ppx. Melatonin for delirium ppx. # Code status: DNR/DNI. # Emergency contact: Brother, Toby, who was updated via phone after rounds. # Disposition: Continue in inpatient status. Anticipate discharge back to [facility] tomorrow if ongoing clinical improvement.
[2019-03-21] MEDS: Enoxaparin 40 MG/0.4 ML Syringe SUBCUT SCH (17:35)
[2019-03-21] MEDS: Mirtazapine 15 MG Tab PO SCH (20:11)
[2019-03-21] MEDS: Sertraline 50 MG Tab PO SCH (20:11)
[2019-03-21] MEDS: Melatonin 3 MG Tab PO SCH (20:11)
[2019-03-22] MEDS: Albuterol/Ipratropium 3.0-0.5 MG/3 ML Neb Soln NEB SCH ×2 (05:10→10:52)
[2019-03-22] MEDS ORDERED: Amoxicillin/Clavulanate K 875-125 MG Tab PO SCH (08:00)
[2019-03-22] MEDS: Calcium Citrate/Vitamin D3 315 MG-250 Unit Tab PO SCH (08:16)
[2019-03-22] MEDS: ClonazePAM 0.5 MG Tab PO SCH (08:16)
[2019-03-22] MEDS: guaiFENesin 600 MG Tab.ER PO SCH (08:17)
[2019-03-22] MEDS: predniSONE 20 MG Tab PO SCH (08:17)
[2019-03-22] MEDS: Famotidine 20 MG Tab PO SCH (08:18)
[2019-03-22] MEDS: B.Bifidum/B.Longum/L.Acidophilus/L.Rhamnosus (Probiotic) Cap PO SCH (08:18)
[2019-03-22] MEDS: Potassium Chloride 20 MEQ Tab.ER PO SCH (08:18)
[2019-03-22] MEDS: Baclofen 10 MG Tab PO SCH (08:19)
[2019-03-22] MEDS: Losartan 50 MG Tab PO SCH (08:20)
[2019-03-22] MEDS: Carboxymethylcellulose Sodium 0.5% Ophth Soln 15 ML Bottle EYEBOTH SCH ×2 (08:21→12:03)
[2019-03-22] MEDS: Budesonide 0.5 MG/2 ML Neb Susp NEB SCH (09:37)
[2019-03-22 11:59] VITALS: BP 136/74; PULSE 82
== END 2019-03-22 11:41 | DRG 193 ==
LOC: UNDOADMIN 12:57 → KA.MS 12:57
PROVIDERS: ADMIT Nurse Practitioner Family; ATTEND Family Medicine
DX: J18.1 Lobar pneumonia, unspecified organism (principal); J96.01 Acute respiratory failure with hypoxia; J44.0 Chronic obstructive pulmonary disease with (acute) lower respiratory infection; A04.72 Enterocolitis due to Clostridium difficile, not specified as recurrent; F33.9 Major depressive disorder, recurrent, unspecified; J44.1 Chronic obstructive pulmonary disease with (acute) exacerbation; Z66 Do not resuscitate; G80.9 Cerebral palsy, unspecified; I10 Essential (primary) hypertension; F51.04 Psychophysiologic insomnia; E78.2 Mixed hyperlipidemia; K21.9 Gastro-esophageal reflux disease without esophagitis; F41.9 Anxiety disorder, unspecified; M19.90 Unspecified osteoarthritis, unspecified site; M54.5 Low back pain; G47.00 Insomnia, unspecified; E87.6 Hypokalemia; R13.10 Dysphagia, unspecified; Z88.8 Allergy status to other drugs, medicaments and biological substances; Z79.82 Long term (current) use of aspirin; Z79.52 Long term (current) use of systemic steroids; Z79.899 Other long term (current) drug therapy
CPT/HCPCS: 36415; 80048; 83880; 84145; 85025; 85651; 86140; 87040; 94640; A9270-GY; J0456; J0696; J1650; J2930; J7050; J7620-GY

== ENCOUNTER 2020-04-20 18:30 | Inpatient (IN) | payer MEDICARE, MEDICAID ==
[2020-04-20] MEDS ORDERED: Sodium Chloride 0.9% 10 ML Syringe FLUSH PRN (19:08)
[2020-04-20 20:34] LABS: ANION GAP 19.4 mmol/L (5-15); CHLORIDE,CL 110 mmol/L (98-115); SODIUM,NA 148 mmol/L (136-145)
[2020-04-20] MEDS ORDERED: Acetaminophen 325 MG Tab PO PRN (21:52)
[2020-04-20] MEDS ORDERED: Acetaminophen 650 MG Tab.ER PO PRN (21:57)
--- NOTE | 2020-04-20 22:08 | EDM.PDOC ---
ED HPI GENERAL MEDICAL PROBLEM - General Chief Complaint: Respiratory Problem Stated Complaint: RESPIRATORY DISTRESS Time Seen by Provider: 04/20/20 19:17 Source of Information: Reports: Family History Limitations: Reports: Altered Mental Status - History of Present Illness INITIAL COMMENTS - FREE TEXT/NARRATIVE: Patient presents from custodial for 7 days of COVID-19 worsening condition. Patient has more shortness of breath more oxygen demands 6 L nasal cannula the patient is below 90%, in high 80%. Patient transferred here by EMS to the hospital emergency room for further evaluation requested by the ADIEL Pineda. Patient was treated with prednisone last week 5-day course. Patient CODE STATUS is DNR. Treatments SAMPLE DISTRIBUTOR: Reports: Breathing Treatments, See EMS Report Bilateral Chest Pain Score (Numeric/FACES): 2 - Related Data Allergies Allergy/AdvReac Type Severity Reaction Status Date / Time brompheniramine Allergy Cannot Verified 04/20/20 19:03 Remember dextromethorphan Allergy Cannot Verified 04/20/20 19:03 [From Dimetapp Remember Cold-Congestion] diphenhydramine Allergy Cannot Verified 04/20/20 19:03 [From [employer]et[employer] Remember Cold-Congestion] guaifenesin Allergy Cannot Verified 04/20/20 19:03 [From Dimetapp Remember Cold-Congestion] phenylephrine Allergy Cannot Verified 04/20/20 19:03 [From Dimetapp Remember Cold-Congestion] pseudoephedrine Allergy Cannot Verified 04/20/20 19:03 [From Dimetapp Remember Cold-Congestion] Home Meds: Home Meds ClonazePAM [KlonoPIN] 0.5 mg PO BID 09/21/16 [History] Potassium Chloride 20 meq PO BID 09/21/16 [History] Sertraline HCl [Zoloft] 125 mg PO BEDTIME 09/21/16 [History] Acetaminophen [Tylenol] 650 mg PO Q4H PRN 04/21/18 [History] Aspercreme Lotion 10% 1 applic TOP BID PRN 04/21/18 [History] Baclofen 2.5 mg PO BID 04/21/18 [History] Mirtazapine [Remeron] 15 mg PO BEDTIME 04/21/18 [History] Propylene Glycol/Peg 400 [Systane 0.3-0.4% Eye Drops] 1 drop EYEBOTH TID@,,17 11/06/18 [History] Losartan Potassium [Cozaar] 50 mg PO DAILY 10/18/18 [History] Famotidine [Pepcid] 20 mg PO BID 03/19/19 [History] Fluticasone/Umeclidin/Vilanter [Trelegy Ellipta 100-62.5-25] 1 each IH DAILY #1 blst.w.dev 03/22/19 [Rx] Acetaminophen [Tylenol Arthritis] 650 mg PO TID PRN 04/20/20 [History] Albuterol/Ipratropium [DuoNeb 3.0-0.5 MG/3 ML] 3 ml INH QID 04/20/20 [History] Albuterol/Ipratropium [DuoNeb 3.0-0.5 MG/3 ML] 3 ml NEB BID PRN 04/20/20 [History] Bisacodyl [Gentle Laxative] 10 mg RECTAL DAILY PRN 04/20/20 [History] Dextromethorphan/guaiFENesin [Robitussin DM] 5 ml PO Q6H PRN 04/20/20 [History] Nystatin 1 applic TOP QID PRN 04/20/20 [History] Past Medical History HEENT History: Reports: Impaired Vision Cardiovascular History: Reports: Hypertension Respiratory History: Reports: Asthma, COPD Gastrointestinal History: Reports: Chronic Constipation, Hiatal Hernia Genitourinary History: Reports: None BEHAVIORAL HEALTH CLINICIAN History: Reports: None Musculoskeletal History: Reports: Arthritis, Other (See Below) Other Musculoskeletal History: Cystic Fibrosis Neurological History: Reports: Cerebral Palsy Psychiatric History: Reports: Anxiety, Depression, Learning Disability, Mood Swings Endocrine/Metabolic History: Reports: None Immunologic History: Reports: None Oncologic (Cancer) History: Reports: None Dermatologic History: Reports: Eczema, Psoriasis - Infectious Disease History Infectious Disease History: Reports: Chicken Pox - Past Surgical History Head Surgeries/Procedures: Reports: None Musculoskeletal Surgical History: Reports: Knee Replacement, Shoulder Surgery Oncologic Surgical History: Reports: None Social & Family History - Family History Family Medical History: Noncontributory HEENT: Reports: None Cardiac: Reports: None Respiratory: Reports: None GI: Reports: None Neurological: Reports: Dementia Psychiatric: Reports: Depression Endocrine/Metabolic: Reports: Diabetes, type II - Tobacco Use Tobacco Use Status *Q: Unknown Ever Used Tobacco - Caffeine Use Caffeine Use: Reports: Coffee, Soda, Tea - Recreational Drug Use Recreational Drug Use: No ED ROS GENERAL - Review of Systems Review Of Systems: Unable To Obtain Reason Not Obtained: resp distress ED EXAM, GENERAL - Physical Exam Exam: See Below Exam Limited By: Respiratory Distress Head: Atraumatic, Normocephalic Neck: Normal Inspection, Supple Respiratory/Chest: Decreased Breath Sounds, Wheezing, Accessory Muscle Use (Mild respiratory distress), Other Cardiovascular: Normal Peripheral Pulses, Regular Rate, Rhythm GI/Abdominal: Soft, Non-Tender Extremities: No Pedal Edema Neurological: Alert Psychiatric: Normal Affect Skin Exam: Warm, Dry, Intact, Pallor Course - Vital Signs Last Recorded V/S: Last Vital Signs Temp 97.3 F 04/20/20 19:30 Pulse 94 04/20/20 20:32 Resp 36 H 04/20/20 20:32 BP 117/58 L 04/20/20 20:32 Pulse Ox 94 L 04/20/20 20:32 - Orders/Labs/Meds Orders: Active Orders 24 hr Category Date Time Status Admission Status [Patient Status] [ADT] Routine ADT 04/20/20 21:18 Ordered Cardiac Monitoring [RC] CONTINUOUS Care 04/20/20 21:54 Active EKG Documentation Completion [RC] ASDIRECTED Care 04/20/20 22:02 Active Intake and Output [RC] QSHIFT Care 04/20/20 21:53 Active Lab Instructions for Nurse [RC] Click to Edit Care 04/20/20 22:03 Ordered Nurse Communication: Isolation [RC] ASDIRECTED Care 04/20/20 19:32 Active Oxygen Therapy [RC] PRN Care 04/20/20 21:52 Active Peripheral IV Care [RC] . DIRECTED Care 04/20/20 19:08 Active Up With Assistance [RC] ASDIRECTED Care 04/20/20 21:52 Active VTE/DVT Education [RC] PER UNIT ROUTINE Care 04/20/20 21:52 Active Vital Signs [RC] Q4H Care 04/20/20 21:52 Active Chest 1V Frontal [CR] Routine Exams 04/20/20 22:00 Ordered B-TYPE NATRIURETIC PEPTIDE,BNP [CHEM] Routine Lab 04/20/20 22:01 Ordered C-REACTIVE PROTEIN [CHEM] AM Lab 04/21/20 05:11 Ordered CBC WITH AUTO DIFF [HEME] AM Lab 04/21/20 05:11 Ordered COMPREHENSIVE METABOLIC PN,CMP [CHEM] AM Lab 04/21/20 05:11 Ordered CREATINE KINASE,CK [CHEM] Routine Lab 04/20/20 22:01 Ordered D-DIMER QUANTITATIVE [COAG] Routine Lab 04/20/20 22:01 Ordered INR,PT,PROTHROMBIN TIME [COAG] Routine Lab 04/20/20 22:01 Ordered MG [MAGNESIUM] [CHEM] Urgent Lab 04/20/20 22:01 Ordered PROCALCITONIN [REF] Urgent Lab 04/20/20 22:03 Ordered PTT,PARTIAL THROMBOPLSTIN TIME [COAG] Routine Lab 04/20/20 22:01 Ordered TROPONIN I [CHEM] Routine Lab 04/20/20 22:01 Ordered Acetaminophen [TylenoL] Med 04/20/20 21:52 Active 650 mg PO Q4H PRN Acetaminophen [Tylenol Arthritis Pain] Med 04/20/20 21:57 Active 650 mg PO TID PRN Baclofen [Lioresal] Med 04/21/20 09:00 Active 2.5 mg PO BID ClonazePAM [KlonoPIN] Med 04/20/20 22:00 Active 0.5 mg PO BID Dextromethorphan/guaiFENesin [Robitussin DM] Med 04/20/20 21:57 Active 5 ml PO Q6H PRN Famotidine [Pepcid] Med 04/21/20 09:00 Active 20 mg PO BID Fluticasone/Umeclidin/Vilanter Med 04/21/20 09:00 Ordered 1 each IH DAILY Mirtazapine Med 04/21/20 21:00 Ordered 15 mg PO BEDTIME Potassium Chloride [Potassium Chloride] Med 04/21/20 09:00 Ordered 20 meq PO BID Propylene Glycol/Peg 400 [Systane 0.3-0.4% Eye Drops] Med 04/21/20 08:00 Ordered 1 drop EYEBOTH TID@ Sertraline [Zoloft] Med 04/21/20 21:00 Ordered 125 mg PO BEDTIME Sodium Chloride 0.9% [Saline Flush] Med 04/20/20 19:08 Active 10 ml FLUSH Q8HR PRN Isolation [COMM] Routine Oth 04/20/20 19:32 Ordered Peripheral IV Insertion Adult [OM.PC] Routine Oth 04/20/20 19:08 Ordered Resuscitation Status Routine Resus Stat 04/20/20 21:52 Ordered EKG 12 Lead [EK] Urgent Ther 04/20/20 22:02 Ordered Medication Orders Acetaminophen (Tylenol) 650 mg PO Q4H PRN PRN Reason: Pain (Mild 1-3)/fever Acetaminophen (Tylenol Arthritis Pain) 650 mg PO TID PRN PRN Reason: Pain Baclofen (Lioresal) 2.5 mg PO BID [facility] Clonazepam (Klonopin) 0.5 mg PO BID [facility] Famotidine (Pepcid) 20 mg PO BID [facility] Guaifenesin/Phenylephrine HCl (Robitussin Dm) 5 ml PO Q6H PRN PRN Reason: Cough Non-Formulary Medication (Fluticasone/Umeclidin/Vilanter) 1 each IH DAILY [facility] Non-Formulary Medication (Mirtazapine) 15 mg PO BEDTIME [facility] Non-Formulary Medication (Potassium Chloride [Potassium Chloride]) 20 meq PO BID [facility] Non-Formulary Medication (Propylene Glycol/Peg 400 [Systane 0.3-0.4% Eye Drops]) 1 drop EYEBOTH TID@,, [facility] Sertraline HCl (Zoloft) 125 mg PO BEDTIME [facility] Sodium Chloride (Saline Flush) 10 ml FLUSH Q8HR PRN PRN Reason: keep vein open Labs: Laboratory Tests 04/20/20 04/20/20 04/20/20 Range/Units 09:15 18:15 19:15 WBC 4.44 L (5.00-10.00) 10^3/uL RBC 4.48 (3.80-5.50) 10^6/uL Hgb 12.7 (12.0-16.0) g/dL Hct 40.3 (37.0-47.0) % MCV 90.0 D (82.0-92.0) fL MCH 28.3 (27.0-31.0) pg MCHC 31.5 L (32.0-36.0) g/dL RDW 13.3 (11.5-14.5) % Plt Count 80 L (150-400) 10^3/uL MPV 9.7 (7.4-10.4) fL Immature Gran % (Auto) 0.5 (0.0-5.0) % Neut % (Auto) 79.2 H (50.0-70.0) % Lymph % (Auto) 14.9 L (20.0-40.0) % [place] % (Auto) 5.0 (2.0-8.0) % Eos % (Auto) 0.2 L (1.0-3.0) % Baso % (Auto) 0.2 (0.0-1.0) % Neut # (Auto) 3.52 (2.50-7.00) 10^3/uL Lymph # (Auto) 0.66 L (1.00-4.00) 10^3/uL [place] # (Auto) 0.22 (0.10-0.80) 10^3/uL Eos # (Auto) 0.01 L (0.10-0.30) 10^3/uL Baso # (Auto) 0.01 (0.00-0.10) 10^3/uL Immature Gran # (Auto) 0.02 (0.00-0.50) 10^3/uL Sodium 148 H (136-145) mmol/L Potassium 4.2 (3.3-5.3) mmol/L Chloride 110 (98-115) mmol/L Carbon Dioxide 22.8 (21.0-32.0) mmol/L Anion Gap 19.4 H (5-15) mmol/L BUN 15 (6-25) mg/dL Creatinine 0.60 (0.51-1.17) mg/dL Est Cr Clr Drug Dosing 56.23 mL/min Estimated GFR (MDRD) > 60 mL/min Glucose 121 H (75 - 99) mg/dL Lactic Acid 1.2 (0.4-2.0) mmol/L Calcium 8.2 L (8.7-10.3) mg/dL Total Bilirubin 0.4 (0.2-1.0) mg/dL AST 33 (15-37) U/L ALT 17 (12-78) U/L Alkaline Phosphatase 54 (46-116) IU/L Total Protein 6.6 (6.4-8.2) g/dL Albumin 2.21 L (3.00-4.80) g/dL Meds: Medications Generic Name Dose Route Start Last Admin Trade Name Freq PRN Reason Stop Dose Admin Acetaminophen 650 mg 04/20/20 21:52 Tylenol PO Q4H PRN Pain (Mild 1-3)/fever Acetaminophen 650 mg 04/20/20 21:57 Tylenol Arthritis Pain PO TID PRN Pain Baclofen 2.5 mg 04/21/20 09:00 Lioresal PO BID [facility] Clonazepam 0.5 mg 04/20/20 22:00 Klonopin PO BID [facility] Famotidine 20 mg 04/21/20 09:00 Pepcid PO BID [facility] Guaifenesin/Phenylephrine HCl 5 ml 04/20/20 21:57 Robitussin Dm PO Q6H PRN Cough Non-Formulary Medication 1 each 04/21/20 09:00 Fluticasone/Umeclidin/Vilanter IH DAILY [facility] Non-Formulary Medication 15 mg 04/21/20 21:00 Mirtazapine PO BEDTIME [facility] Non-Formulary Medication 20 meq 04/21/20 09:00 Potassium Chloride [Potassium Chloride] PO BID [facility] Non-Formulary Medication 1 drop 04/21/20 08:00 Propylene Glycol/Peg 400 [Systane 0.3-0.4% Eye Drops] EYEBOTH TID@, [facility] Sertraline HCl 125 mg 04/21/20 21:00 Zoloft PO BEDTIME [facility] Sodium Chloride 10 ml 04/20/20 19:08 Saline Flush FLUSH Q8HR PRN keep vein open - Re-Assessments/Exams Free Text/Narrative Re-Assessment/Exam: 04/20/20 22:07 Patient was trialed with nasal cannula however oxygen saturations dropped below 90%. 6 L with nonrebreather her oxygen saturations remained 94%. I did speak with the POLance Pineda discussed plan of care he would like the patient admitted overnight for further evaluation observation. I did consult the on-call provider Jessica she accepted the care to admit the patient. Departure - Departure Time of Disposition: 21:30 Disposition: DC[facility] Condition: Serious Clinical Impression: COVID-19, Hypoxia - Discharge Information *PRESCRIPTION DRUG MONITORING PROGRAM REVIEWED*: No *COPY OF PRESCRIPTION DRUG MONITORING REPORT IN PATIENT MELY: No Referrals: Eva Abel MD [Primary Care Provider] - Sepsis Event Note (ED) - Evaluation Sepsis Screening Result: Possible Sepsis Risk - Focused Exam Vital Signs: Vital Signs Temp Pulse Resp BP Pulse Ox 04/20/20 20:32 94 36 H 117/58 L 94 L 04/20/20 19:30 97.3 F 93 48 H 123/74 98 04/20/20 18:53 97 F 97 28 H 102/55 L 97 - My Orders Last 24 Hours: My Active Orders 04/20/20 19:08 Peripheral IV Care [RC] . DIRECTED Sodium Chloride 0.9% [Saline Flush] 10 ml FLUSH Q8HR PRN Peripheral IV Insertion Adult [OM.PC] Routine 04/20/20 19:32 Nurse Communication: Isolation [RC] ASDIRECTED Isolation [COMM] Routine 04/20/20 21:18 Admission Status [Patient Status] [ADT] Routine - Assessment/Plan Last 24 Hours: My Active Orders 04/20/20 19:08 Peripheral IV Care [RC] . DIRECTED Sodium Chloride 0.9% [Saline Flush] 10 ml FLUSH Q8HR PRN Peripheral IV Insertion Adult [OM.PC] Routine 04/20/20 19:32 Nurse Communication: Isolation [RC] ASDIRECTED Isolation [COMM] Routine 04/20/20 21:18 Admission Status [Patient Status] [ADT] Routine
[2020-04-20] MEDS ORDERED: Albuterol 8 GM Inhaler INH PRN (22:10)
[2020-04-20] MEDS: ClonazePAM 0.5 MG Tab PO SCH (22:49)
[2020-04-20] MEDS ORDERED: Morphine 2 MG/ML SYRINGE IVPUSH PRN (23:34)
[2020-04-20] MEDS: Sodium Chloride 0.9% 1,000 ML IV SCH (23:45)
[2020-04-20] MEDS: guaiFENesin/Dextromethorphan 100-10 MG/5 ML Soln 5 ML Cup PO PRN (23:53)
[2020-04-21 00:27] LABS: PTT,PARTIAL THROMBOPLSTIN TIME 28.8 SEC (22.8-31.4)
[2020-04-21] MEDS: Sodium Chloride 0.9% 1,000 ML IV SCH ×3 (03:54→23:56)
[2020-04-21] MEDS: Dexamethasone 4 MG Tab PO SCH (08:06)
[2020-04-21] MEDS: Baclofen 10 MG Tab PO SCH ×2 (08:07→20:57)
[2020-04-21] MEDS: ClonazePAM 0.5 MG Tab PO SCH ×2 (08:09→20:57)
[2020-04-21] MEDS: Famotidine 20 MG Tab PO SCH ×2 (08:10→20:58)
[2020-04-21] MEDS: Potassium Chloride 10 MEQ Tab.ER PO SCH ×3 (08:10→20:57)
[2020-04-21] MEDS: Ascorbic Acid 500 MG Tab PO SCH ×2 (08:10→20:58)
[2020-04-21] MEDS: Cholecalciferol (Vitamin D3) 25 MCG Tab PO SCH (08:10)
[2020-04-21 08:18] LABS: CHLORIDE,CL 116 mmol/L (98-115)
[2020-04-21] MEDS: Magnesium Oxide 500 MG Tab PO SCH ×2 (08:18→11:34)
[2020-04-21] MEDS: Glycopyrrolate 15.6 MCG Cap.W.Dev Kit of 6 IH SCH (08:23)
--- NOTE | 2020-04-21 08:23 | CR ---
[id number] RAD/RAD Chest PA or AP 1V EXAM: RAD Chest PA or AP 1V INDICATION: HYPOXIA COMPARISON: Radiograph from October 2018. CT from April 2018. DISCUSSION: Patchy areas of geographic appearing on masslike parenchymal opacification in both lungs. Differential diagnosis includes pulmonary edema or pneumonia, including sequela of Covid 19. Correlate for signs of infection. If findings are clinically equivocal, CT examination of the chest without contrast is recommended. Abnormal appearance of the right hemithorax is due in part to a large hiatus hernia seen on prior CT. IMPRESSION: As above. Dima Aguilera MD 04/21/20 0822 Thank you for allowing us to participate in the care of your patient.
[2020-04-21 08:30] LABS: ANION GAP 15.3 mmol/L (5-15); SODIUM,NA 150 mmol/L (136-145)
[2020-04-21] MEDS: guaiFENesin/Dextromethorphan 100-10 MG/5 ML Soln 5 ML Cup PO PRN (08:34)
[2020-04-21] MEDS: Morphine 2 MG/ML SYRINGE IVPUSH PRN ×2 (08:40→19:30)
[2020-04-21] MEDS: Formoterol/Mometasone 100-5 MCG 8.8 GM Inhaler IH SCH ×2 (08:49→22:02)
[2020-04-21] MEDS: Carboxymethylcellulose Sodium 0.5% Ophth Soln 15 ML Bottle EYEBOTH SCH ×2 (11:34→18:16)
[2020-04-21] MEDS ORDERED: Potassium Chloride 20 MEQ in Premix Bag 1 BAG IV ONE ×3 (11:36→20:00)
--- NOTE | 2020-04-21 11:41 | PCM.HP.2 ---
H&P History of Present Illness - General Date of Service: 04/21/20 Admit Problem/Dx: Admission Diagnosis/Problem Admission Diagnosis/Problem Hypoxia Source of Information: Old Records, Provider, RN Bilateral Chest Pain Score (Numeric/FACES): 2 - Related Data Allergies/Adverse Reactions: Allergies Allergy/AdvReac Type Severity Reaction Status Date / Time brompheniramine Allergy Cannot Verified 04/21/20 01:44 Remember dextromethorphan Allergy Cannot Verified 04/21/20 01:44 [From Dimetapp Remember Cold-Congestion] diphenhydramine Allergy Cannot Verified 04/21/20 01:44 [From Dimetapp Remember Cold-Congestion] guaifenesin Allergy Cannot Verified 04/21/20 01:44 [From Dimeta Remember Cold-Congestion] phenylephrine Allergy Cannot Verified 04/21/20 01:44 [From Dimeta Remember Cold-Congestion] pseudoephedrine Allergy Cannot Verified 04/21/20 01:44 [From Dimetapp Remember Cold-Congestion] Home Medications: Home Meds Nystatin 1 applic TOP QID PRN 04/20/20 [History] Carboxymethylcellulose Sodium [Refresh Tears 0.5%] 0 ml EYEBOTH TID@08,11,17 bottle 04/22/20 [Rx] Past Medical History HEENT History: Reports: Impaired Vision Cardiovascular History: Reports: Hypertension Respiratory History: Reports: Asthma, COPD Gastrointestinal History: Reports: Chronic Constipation, Hiatal Hernia Genitourinary History: Reports: None 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: None Musculoskeletal History: Reports: Arthritis, Other (See Below) Other Musculoskeletal History: Cystic Fibrosis Neurological History: Reports: Cerebral Palsy Psychiatric History: Reports: Anxiety, Depression, Learning Disability, Mood Swings Endocrine/Metabolic History: Reports: None Immunologic History: Reports: None Oncologic (Cancer) History: Reports: None Dermatologic History: Reports: Eczema, Psoriasis - Infectious Disease History Infectious Disease History: Reports: Chicken Pox - Past Surgical History Head Surgeries/Procedures: Reports: None Musculoskeletal Surgical History: Reports: Knee Replacement, Shoulder Surgery Oncologic Surgical History: Reports: None Social & Family History - Family History Family Medical History: Noncontributory HEENT: Reports: None Cardiac: Reports: None Respiratory: Reports: None GI: Reports: None Neurological: Reports: Dementia Psychiatric: Reports: Depression Endocrine/Metabolic: Reports: Diabetes, type II - Tobacco Use Tobacco Use Status *Q: Unknown Ever Used Tobacco - Caffeine Use Caffeine Use: Reports: Coffee, Soda, Tea - Recreational Drug Use Recreational Drug Use: No H&P Review of Systems - Review of Systems: Review Of Systems: See Below (unable to obtain from patient the full review of systems) General: Reports: Chills, Weakness. Denies: Fever Pulmonary: Reports: Shortness of Breath, Cough, Sputum Genitourinary: Reports: Incontinence Neurological: Reports: Dizziness. Denies: Confusion Exam - Exam Exam: See Below - Vital Signs Vital Signs: Last Vital Signs Temp 97.9 F 04/21/20 06:46 Pulse 84 04/21/20 06:46 Resp 40 H 04/21/20 06:46 BP 97/50 L 04/21/20 06:46 Pulse Ox 95 04/21/20 06:46 Weight: 110 lb - Exam Quality Assessment: Supplemental Oxygen General: Alert, Moderate Distress Neck: Supple Lungs: Crackles, Rhonchi, Wheezing Cardiovascular: Tachycardia GI/Abdominal Exam: Soft, Non-Tender Extremities: No: Pedal Edema Peripheral Pulses: 3+: Radial (L), Radial (R) Skin: Dry, Cool Neurological: Sensation Intact. No: Normal Speech Neuro Extensive - Mental Status: Alert Psychiatric: Alert - Patient Data Lab Results Last 24 hrs: Laboratory Results - last 24 hr 04/20/20 04/20/20 04/20/20 Range/Units 09:15 18:15 19:15 WBC 4.44 L (5.00-10.00) 10^3/uL RBC 4.48 (3.80-5.50) 10^6/uL Hgb 12.7 (12.0-16.0) g/dL Hct 40.3 (37.0-47.0) % MCV 90.0 D (82.0-92.0) fL MCH 28.3 (27.0-31.0) pg MCHC 31.5 L (32.0-36.0) g/dL RDW 13.3 (11.5-14.5) % Plt Count 80 L (150-400) 10^3/uL MPV 9.7 (7.4-10.4) fL Immature Gran % (Auto) 0.5 (0.0-5.0) % Neut % (Auto) 79.2 H (50.0-70.0) % Lymph % (Auto) 14.9 L (20.0-40.0) % [place] % (Auto) 5.0 (2.0-8.0) % Eos % (Auto) 0.2 L (1.0-3.0) % Baso % (Auto) 0.2 (0.0-1.0) % Neut # (Auto) 3.52 (2.50-7.00) 10^3/uL Lymph # (Auto) 0.66 L (1.00-4.00) 10^3/uL [place] # (Auto) 0.22 (0.10-0.80) 10^3/uL Eos # (Auto) 0.01 L (0.10-0.30) 10^3/uL Baso # (Auto) 0.01 (0.00-0.10) 10^3/uL Immature Gran # (Auto) 0.02 (0.00-0.50) 10^3/uL PT (9.2-11.2) SEC INR (0.9-1.1) APTT (22.8-31.4) SEC D-Dimer, Quantitative (<400) ng/mL Sodium 148 H (136-145) mmol/L Potassium 4.2 (3.3-5.3) mmol/L Chloride 110 (98-115) mmol/L Carbon Dioxide 22.8 (21.0-32.0) mmol/L Anion Gap 19.4 H (5-15) mmol/L BUN 15 (6-25) mg/dL Creatinine 0.60 (0.51-1.17) mg/dL Est Cr Clr Drug Dosing 56.23 mL/min Estimated GFR (MDRD) > 60 mL/min Glucose 121 H (75 - 99) mg/dL Lactic Acid 1.2 (0.4-2.0) mmol/L Calcium 8.2 L (8.7-10.3) mg/dL Magnesium (1.8-2.4) mg/dL Total Bilirubin 0.4 (0.2-1.0) mg/dL AST 33 (15-37) U/L ALT 17 (12-78) U/L Alkaline Phosphatase 54 (46-116) IU/L Creatine Kinase (26-276) U/L Troponin I (0.00-0.070) ng/mL C-Reactive Protein (0.0-0.9) mg/dL B-Natriuretic Peptide (0-100) pg/mL Total Protein 6.6 (6.4-8.2) g/dL Albumin 2.21 L (3.00-4.80) g/dL 04/20/20 04/20/20 04/20/20 Range/Units 22:55 23:30 23:30 WBC (5.00-10.00) 10^3/uL RBC (3.80-5.50) 10^6/uL Hgb (12.0-16.0) g/dL Hct (37.0-47.0) % MCV (82.0-92.0) fL MCH (27.0-31.0) pg MCHC (32.0-36.0) g/dL RDW (11.5-14.5) % Plt Count (150-400) 10^3/uL MPV (7.4-10.4) fL Immature Gran % (Auto) (0.0-5.0) % Neut % (Auto) (50.0-70.0) % Lymph % (Auto) (20.0-40.0) % [place] % (Auto) (2.0-8.0) % Eos % (Auto) (1.0-3.0) % Baso % (Auto) (0.0-1.0) % Neut # (Auto) (2.50-7.00) 10^3/uL Lymph # (Auto) (1.00-4.00) 10^3/uL [place] # (Auto) (0.10-0.80) 10^3/uL Eos # (Auto) (0.10-0.30) 10^3/uL Baso # (Auto) (0.00-0.10) 10^3/uL Immature Gran # (Auto) (0.00-0.50) 10^3/uL PT 10.0 (9.2-11.2) SEC INR 1.0 (0.9-1.1) APTT 28.8 (22.8-31.4) SEC D-Dimer, Quantitative 711 H (<400) ng/mL Sodium (136-145) mmol/L Potassium (3.3-5.3) mmol/L Chloride (98-115) mmol/L Carbon Dioxide (21.0-32.0) mmol/L Anion Gap (5-15) mmol/L BUN (6-25) mg/dL Creatinine (0.51-1.17) mg/dL Est Cr Clr Drug Dosing mL/min Estimated GFR (MDRD) mL/min Glucose (75 - 99) mg/dL Lactic Acid (0.4-2.0) mmol/L Calcium (8.7-10.3) mg/dL Magnesium 1.7 L (1.8-2.4) mg/dL Total Bilirubin (0.2-1.0) mg/dL AST (15-37) U/L ALT (12-78) U/L Alkaline Phosphatase (46-116) IU/L Creatine Kinase 88 (26-276) U/L Troponin I < 0.04 (0.00-0.070) ng/mL C-Reactive Protein (0.0-0.9) mg/dL B-Natriuretic Peptide 66 (0-100) pg/mL Total Protein (6.4-8.2) g/dL Albumin (3.00-4.80) g/dL 04/21/20 04/21/20 Range/Units 07:45 07:45 WBC 4.48 L (5.00-10.00) 10^3/uL RBC 3.53 L (3.80-5.50) 10^6/uL Hgb 10.1 L D (12.0-16.0) g/dL Hct 32.8 L (37.0-47.0) % MCV 92.9 H (82.0-92.0) fL MCH 28.6 (27.0-31.0) pg MCHC 30.8 L (32.0-36.0) g/dL RDW 13.4 (11.5-14.5) % Plt Count 71 L (150-400) 10^3/uL MPV 9.9 (7.4-10.4) fL Immature Gran % (Auto) 0.2 (0.0-5.0) % Neut % (Auto) 82.7 H (50.0-70.0) % Lymph % (Auto) 12.9 L (20.0-40.0) % [place] % (Auto) 3.6 (2.0-8.0) % Eos % (Auto) 0.4 L (1.0-3.0) % Baso % (Auto) 0.2 (0.0-1.0) % Neut # (Auto) 3.70 (2.50-7.00) 10^3/uL Lymph # (Auto) 0.58 L (1.00-4.00) 10^3/uL [place] # (Auto) 0.16 (0.10-0.80) 10^3/uL Eos # (Auto) 0.02 L (0.10-0.30) 10^3/uL Baso # (Auto) 0.01 (0.00-0.10) 10^3/uL Immature Gran # (Auto) 0.01 (0.00-0.50) 10^3/uL PT (9.2-11.2) SEC INR (0.9-1.1) APTT (22.8-31.4) SEC D-Dimer, Quantitative (<400) ng/mL Sodium 150 H (136-145) mmol/L Potassium 3.0 L (3.3-5.3) mmol/L Chloride 116 H (98-115) mmol/L Carbon Dioxide 21.7 (21.0-32.0) mmol/L Anion Gap 15.3 H (5-15) mmol/L BUN 12 (6-25) mg/dL Creatinine 0.45 L (0.51-1.17) mg/dL Est Cr Clr Drug Dosing 75.20 mL/min Estimated GFR (MDRD) > 60 mL/min Glucose 76 (75 - 99) mg/dL Lactic Acid (0.4-2.0) mmol/L Calcium 5.9 L* D (8.7-10.3) mg/dL Magnesium (1.8-2.4) mg/dL Total Bilirubin 0.4 (0.2-1.0) mg/dL AST 27 (15-37) U/L ALT 15 (12-78) U/L Alkaline Phosphatase 40 L (46-116) IU/L Creatine Kinase (26-276) U/L Troponin I (0.00-0.070) ng/mL C-Reactive Protein 14.4 H (0.0-0.9) mg/dL B-Natriuretic Peptide (0-100) pg/mL Total Protein 4.9 L (6.4-8.2) g/dL Albumin 1.53 L (3.00-4.80) g/dL Result Diagrams: 04/21/20 07:45 04/21/20 07:45 Sepsis Event Note - Evaluation Sepsis Screening Result: Severe Sepsis Risk - Focused Exam Vital Signs: Vital Signs Temp Pulse Resp BP Pulse Ox 04/21/20 06:46 97.9 F 84 40 H 97/50 L 95 04/21/20 04:10 97.7 F 80 35 H 87/39 L 96 04/21/20 01:00 95 34 H 102/41 L 94 L 04/20/20 23:15 98.5 F 85 55 H 99/47 L 96 Problem List Initiated/Reviewed/Updated: Yes Orders Last 24hrs: Active Orders 24 hr Category Date Time Status Admission Status [Patient Status] [ADT] Routine ADT 04/20/20 21:18 Active Cardiac Monitoring [RC] 03,07,11,,19,23 Care 04/20/20 21:54 Active Communication Order [RC] 09 Care 04/20/20 22:08 Active Communication Order [RC] ,21 Care 04/20/20 22:04 Active Intake and Output [RC] 06,, Care 04/20/20 21:53 Active Lab Instructions for Nurse [RC] Click to Edit Care 04/20/20 22:03 Active Nurse Communication: Isolation [RC] ASDIRECTED Care 04/20/20 19:32 Active Peripheral IV Care [RC] , Care 04/20/20 19:08 Active RT Post Treatment Assessment [RC] Click to Edit Care 04/20/20 22:11 Active RT Pre-Treatment Assessment [RC] Click to Edit Care 04/20/20 22:11 Active Up With Assistance [RC] ASDIRECTED Care 04/20/20 21:52 Active VTE/DVT Education [RC] PER UNIT ROUTINE Care 04/20/20 21:52 Active Vital Signs [RC] 03,07,11,15,19,23 Care 04/20/20 21:52 Active Regular Diet [DIET] Diet 04/21/20 Breakfast Active Soft Diet [DIET] Diet 04/21/20 Breakfast Active CORONAVIRUS COVID-19 RAPID [MOLEC] Routine Lab 04/21/20 10:12 Received PROCALCITONIN [REF] Urgent Lab 04/20/20 22:55 Received Acetaminophen [TylenoL] Med 04/20/20 21:52 Active 650 mg PO Q4H PRN Acetaminophen [Tylenol Arthritis Pain] Med 04/20/20 21:57 Active 650 mg PO TID PRN Albuterol [Ventolin HFA] Med 04/20/20 22:10 Active 1 - 2 gm INH Q2H PRN Ascorbic Acid [Vitamin C] Med 04/21/20 09:00 Active 1,000 mg PO BID Baclofen [Lioresal] Med 04/21/20 09:00 Active 2.5 mg PO BID Carboxymethylcellulose Sodium [Refresh Tears 0.5%] Med 04/21/20 11:00 Active 0 ml EYEBOTH TID@ Cholecalciferol (Vitamin D3) [Vitamin D3] Med 04/21/20 09:00 Active 25 mcg PO DAILY ClonazePAM [KlonoPIN] Med 04/20/20 22:00 Active 0.5 mg PO BID Dextromethorphan/guaiFENesin [Robitussin DM] Med 04/20/20 21:57 Active 5 ml PO Q6H PRN Famotidine [Pepcid] Med 04/21/20 09:00 Active 20 mg PO BID Glycopyrrolate [Seebri Neohaler] Med 04/21/20 09:00 Active 15.6 mcg IH DAILYRT Magnesium Oxide Med 04/21/20 08:00 Active 500 mg PO Q4H Mirtazapine [Remeron] Med 04/21/20 21:00 Active 15 mg PO BEDTIME Mometasone/Formoterol [Dulera 100-5 MCG] Med 04/21/20 08:00 Active 2 puff IH BIDRT Morphine Med 04/21/20 01:07 Active 2 mg IVPUSH Q2H PRN Potassium Chloride [Klor-Con 10] Med 04/21/20 09:00 Active 20 meq PO BID Sertraline [Zoloft] Med 04/21/20 21:00 Active 125 mg PO BEDTIME Sodium Chloride 0.9% [Normal Saline] 1,000 ml Med 04/20/20 23:45 Active IV ASDIRECTED Sodium Chloride 0.9% [Saline Flush] Med 04/20/20 19:08 Active 10 ml FLUSH Q8HR PRN atorvaSTATin [Lipitor] Med 04/21/20 21:00 Active 40 mg PO BEDTIME dexAMETHasone Med 04/21/20 09:00 Active 6 mg PO DAILY Isolation [COMM] Routine Oth 04/20/20 19:32 Ordered Peripheral IV Insertion Adult [OM.PC] Routine Oth 04/20/20 19:08 Ordered Resuscitation Status Routine Resus Stat 04/20/20 21:52 Ordered EKG 12 Lead [EK] Urgent Ther 04/20/20 22:02 Ordered Medication Orders Acetaminophen (Tylenol) 650 mg PO Q4H PRN PRN Reason: Pain (Mild 1-3)/fever Acetaminophen (Tylenol Arthritis Pain) 650 mg PO TID PRN PRN Reason: Pain Last Admin: 04/20/20 23:52 Dose: 650 mg Documented by: JONNIE Albuterol (Ventolin Hfa) 1 - 2 gm INH Q2H PRN PRN Reason: shortness of breath Last Admin: 04/20/20 23:53 Dose: 2 puff Documented by: JONNIE Artificial Tears (Refresh Tears 0.5%) 0 ml EYEBOTH TID@ [facility] Ascorbic Acid (Vitamin C) 1,000 mg PO BID [facility] Last Admin: 04/21/20 08:10 Dose: 1,000 mg Documented by: LISA Atorvastatin Calcium (Lipitor) 40 mg PO BEDTIME [facility] Baclofen (Lioresal) 2.5 mg PO BID [facility] Last Admin: 04/21/20 08:07 Dose: 2.5 mg Documented by: LISA Cholecalciferol (Vitamin D3) 25 mcg PO DAILY [facility] Last Admin: 04/21/20 08:10 Dose: 25 mcg Documented by: LISA Clonazepam (Klonopin) 0.5 mg PO BID [facility] Last Admin: 04/21/20 08:09 Dose: 0.5 mg Documented by: Admin: 04/20/20 22:49 Dose: 0.5 mg Documented by: JONNIE Dexamethasone (Dexamethasone) 6 mg PO DAILY [facility] Stop: 05/01/20 09:01 Last Admin: 04/21/20 08:06 Dose: 6 mg Documented by: LISA Famotidine (Pepcid) 20 mg PO BID [facility] Last Admin: 04/21/20 08:10 Dose: 20 mg Documented by: LISA Glycopyrrolate (Seebri Neohaler) 15.6 mcg IH DAILYRT [facility] Last Admin: 04/21/20 08:23 Dose: 1 puff Documented by: LISA Guaifenesin/Phenylephrine HCl (Robitussin Dm) 5 ml PO Q6H PRN PRN Reason: Cough Last Admin: 04/21/20 08:34 Dose: 5 ml Documented by: Admin: 04/20/20 23:53 Dose: 5 ml Documented by: JONNIE Sodium Chloride (Normal Saline) 1,000 mls @ 100 mls/hr IV ASDIRECTED [facility] Last Infusion: 04/21/20 04:21 Dose: 100 mls/hr Documented by: Admin: 04/21/20 03:54 Dose: 75 mls/hr Documented by: Infusion: 04/21/20 03:54 Dose: 75 mls/hr Documented by: Admin: 04/20/20 23:45 Dose: 75 mls/hr Documented by: JONNIE Magnesium Oxide (Magnesium Oxide) 500 mg PO Q4H [facility] Stop: 04/21/20 12:01 Last Admin: 04/21/20 08:18 Dose: 500 mg Documented by: LISA Mirtazapine (Remeron) 15 mg PO BEDTIME [facility] Mometasone Furoate/Formoterol Fumar (Dulera 100-5 Mcg) 2 puff IH BIDRT [facility] Last Admin: 04/21/20 08:49 Dose: 2 puff Documented by: LISA Morphine Sulfate (Morphine) 2 mg IVPUSH Q2H PRN PRN Reason: Pain Last Admin: 04/21/20 08:40 Dose: 2 mg Documented by: LISA Potassium Chloride (Klor-Con 10) 20 meq PO BID [facility] Sertraline HCl (Zoloft) 125 mg PO BEDTIME [facility] Sodium Chloride (Saline Flush) 10 ml FLUSH Q8HR PRN PRN Reason: keep vein open Assessment/Plan Comment:: History of present illness Ivy is a 79-year-old female resident of a long-term care center was admitted last night through the ED due to worsening respiratory status secondary to COVID-19. Patient has been noticed with COVID-19 approximately 7 days ago has worsening shortness of breath with increase in oxygen requirements up to 6 L/min. Patient was treated with 5-day course of glucocorticoids prednisone. The patient is a DNR in consultation with the on-call provider and the brother it was decided for her to be admitted to [facility] for further treatment. Chest x-ray demonstrates significant patchy areas with masslike opacification bilateral lungs __ Acute Hospital problems --Hypoxia, acute respiratory failure with COVID-19 and suspected aspiration --Electrolyte disturbance, hypokalemia, hyponatremia hypocalcemia --Profound hypotension-- suspect developing sepsis Disposition/overall plan --Continue inpatient management as patient poor prognosis. --Correct electrolytes --Continue dexamethasone, hold off on giving Remdesivir --Thigh high surgical support stockings to help with BP control, Will consider IV pressors for low MAP --IV fluids Social DNR, ADIEL Lynch (brother) and was spoke on the phone today I did suggest palliative management however we could correct electrolytes monitor her oxygen saturations continue treating with dexamethasone and IVs for blood pressure support, he agreed with management. Doubtful patient survives hospital stay - Mortality Measure Prognosis:: Poor
[2020-04-21] MEDS ORDERED: FLUTICASONE IH SCH (11:45)
[2020-04-21] MEDS ORDERED: UMECLIDIN IH SCH (11:45)
[2020-04-21] MEDS ORDERED: VILANTER IH SCH (11:45)
[2020-04-21] MEDS ORDERED: atorvaSTATin 40 MG Tab PO SCH (21:00)
[2020-04-21] MEDS ORDERED: Mirtazapine 15 MG Tab PO SCH (21:00)
[2020-04-21] MEDS ORDERED: Sertraline 50 MG Tab PO SCH (21:00)
[2020-04-22] MEDS: Morphine 2 MG/ML SYRINGE IVPUSH PRN ×4 (00:56→11:26)
[2020-04-22] MEDS: Cholecalciferol (Vitamin D3) 25 MCG Tab PO SCH (08:42)
[2020-04-22] MEDS: Famotidine 20 MG Tab PO SCH (08:42)
[2020-04-22] MEDS: Ascorbic Acid 500 MG Tab PO SCH (08:42)
[2020-04-22] MEDS: Potassium Chloride 10 MEQ Tab.ER PO SCH (08:43)
[2020-04-22] MEDS: Carboxymethylcellulose Sodium 0.5% Ophth Soln 15 ML Bottle EYEBOTH SCH ×2 (08:43→11:26)
[2020-04-22] MEDS: ClonazePAM 0.5 MG Tab PO SCH (09:24)
[2020-04-22] MEDS: Dexamethasone 4 MG Tab PO SCH (09:24)
[2020-04-22] MEDS: Baclofen 10 MG Tab PO SCH (09:24)
[2020-04-22] MEDS: Sodium Chloride 0.9% 1,000 ML IV SCH (09:44)
[2020-04-22] MEDS: Glycopyrrolate 15.6 MCG Cap.W.Dev Kit of 6 IH SCH (09:50)
[2020-04-22] MEDS: Formoterol/Mometasone 100-5 MCG 8.8 GM Inhaler IH SCH (09:51)
[2020-04-22 11:25] VITALS: BP 115/59; PULSE 104
--- NOTE | 2020-04-23 09:48 | PCM.DCSUM1 ---
Discharge Summary - Hospital Course Diagnosis: Stroke: No - Discharge Data Discharge Date: 04/22/20 Discharge Disposition: DC/Tfer to [facility] Condition: Critical - Referral to Home Health Primary Care Physician: Eva Abel MD - Patient Instructions Diet: Usual Diet as Tolerated Other/Special Instructions: Morphine 5 mg Buccal every 1 hour as needed for shortness of breath. Lorazapam 0.5 mg Buccal (PO slurry) for restlessness. Oral care - Discharge Plan *PRESCRIPTION DRUG MONITORING PROGRAM REVIEWED*: Not Applicable *COPY OF PRESCRIPTION DRUG MONITORING REPORT IN PATIENT MELY: Not Applicable Home Medications: Home Meds Nystatin 1 applic TOP QID PRN 04/20/20 [History] Carboxymethylcellulose Sodium [Refresh Tears 0.5%] 0 ml EYEBOTH TID@,, bottle 04/22/20 [Rx] Oxygen Therapy Mode: Simple Mask (10 L/min) - Discharge Summary/Plan Comment DC Time >30 min.: Yes Discharge Summary/Plan Comment: Final diagnosis Acute respiratory failure, hypoxia, with COVID-19 and suspected aspiration Hypernatremia Hypokalemia History summary 79-year-old female [facility] was admitted through the ED due to worsening respiratory status secondary to COVID-19. Patient has been dx with COVID-19 approximately 7 days prior to this acute admission never was admitted due to worsening shortness of breath with increase in oxygen requirements up to 6 L/min. Patient was treated with 5-day course of glucocorticoids prednisone while in the long-term care setting. Family desired her to be admitted to [facility] at all possible for further treatment and evaluation. Chest x-ray demonstrates significant patchy areas with masslike opacification bilateral lungs Hospital course Patient required increasing amounts of oxygen up to 15 L per nonrebreather. Nurses reported possible aspiration on her medication Robitussin however patient never had a fever. Although she had significant respiratory distress she was fairly alert up until the point of discharge. She was treated with IV potassium to correct electrolytes. She was placed on dexamethasone. It was decided to hold off on giving Remdesivir given her poor prognosis thus the requirements of multiple intervention such as blood draws in which the family agreed likely would be futile. Given morphine to improving her breathing. Disposition/overall plan In long discussion with her brother Edwin given her poor prognosis it was felt she had less than 24 hours of expected life therefore the family desired for visitation. [facility] current infection control procedures prohibited family visitation therefore she was transferred back to long-term care facility in order for her family to visit during her final hours of life. - General Info Date of Service: 04/22/20 Subjective Update: The majority of review of systems unobtainable as the patient uncommunicative Functional Status: Reports: Pain Controlled. Denies: Tolerating Diet, Ambulating, Urinating - Review of Systems General: Denies: Fever Pulmonary: Reports: Shortness of Breath, Cough - Patient Data Vitals - Most Recent: Last Vital Signs Temp 96.9 F 04/22/20 11:00 Pulse 104 H 04/22/20 11:00 Resp 48 H 04/22/20 11:00 BP 115/59 L 04/22/20 11:00 Pulse Ox 76 L 04/22/20 11:00 Weight - Most Recent: 110 lb Med Orders - Current: Current Medications Discontinued Medications Acetaminophen (Tylenol) 650 mg PO Q4H PRN PRN Reason: Pain (Mild 1-3)/fever Acetaminophen (Tylenol Arthritis Pain) 650 mg PO TID PRN PRN Reason: Pain Last Admin: 04/20/20 23:52 Dose: 650 mg Documented by: Albuterol (Ventolin Hfa) 1 - 2 gm INH Q2H PRN PRN Reason: shortness of breath Last Admin: 04/20/20 23:53 Dose: 2 puff Documented by: Artificial Tears (Refresh Tears 0.5%) 0 ml EYEBOTH TID@ [facility] Last Admin: 04/22/20 11:26 Dose: 1 drop Documented by: Ascorbic Acid (Vitamin C) 1,000 mg PO BID [facility] Last Admin: 04/22/20 08:42 Dose: Not Given Documented by: Atorvastatin Calcium (Lipitor) 40 mg PO BEDTIME [facility] Last Admin: 04/21/20 20:57 Dose: Not Given Documented by: Baclofen (Lioresal) 2.5 mg PO BID [facility] Last Admin: 04/22/20 09:24 Dose: 2.5 mg Documented by: Cholecalciferol (Vitamin D3) 25 mcg PO DAILY [facility] Last Admin: 04/22/20 08:42 Dose: Not Given Documented by: Clonazepam (Klonopin) 0.5 mg PO BID [facility] Last Admin: 04/22/20 09:24 Dose: 0.5 mg Documented by: Dexamethasone (Dexamethasone) 6 mg PO DAILY [facility] Stop: 05/01/20 09:01 Last Admin: 04/22/20 09:24 Dose: 6 mg Documented by: Famotidine (Pepcid) 20 mg PO BID [facility] Last Admin: 04/22/20 08:42 Dose: Not Given Documented by: Glycopyrrolate (Seebri Neohaler) 15.6 mcg IH DAILYRT [facility] Last Admin: 04/22/20 09:50 Dose: Not Given Documented by: Guaifenesin/Phenylephrine HCl (Robitussin Dm) 5 ml PO Q6H PRN PRN Reason: Cough Last Admin: 04/21/20 08:34 Dose: 5 ml Documented by: Sodium Chloride (Normal Saline) 1,000 mls @ 100 mls/hr IV ASDIRECTED [facility] Last Admin: 04/22/20 09:44 Dose: 100 mls/hr Documented by: Potassium Chloride 20 meq/ (Premix) 100 mls @ 50 mls/hr IV ONETIME ONE Stop: 04/21/20 13:35 Last Admin: 04/21/20 13:35 Dose: 50 mls/hr Documented by: Potassium Chloride 20 meq/ (Premix) 100 mls @ 50 mls/hr IV ONETIME ONE Stop: 04/21/20 18:35 Last Admin: 04/21/20 15:47 Dose: 50 mls/hr Documented by: Potassium Chloride 20 meq/ (Premix) 100 mls @ 50 mls/hr IV ONETIME ONE Stop: 04/21/20 21:59 Last Admin: 04/21/20 19:31 Dose: 50 mls/hr Documented by: Magnesium Oxide (Magnesium Oxide) 500 mg PO Q4H [facility] Stop: 04/21/20 12:01 Last Admin: 04/21/20 11:34 Dose: 500 mg Documented by: Mirtazapine (Remeron) 15 mg PO BEDTIME [facility] Last Admin: 04/21/20 20:57 Dose: 15 mg Documented by: Mometasone Furoate/Formoterol Fumar (Dulera 100-5 Mcg) 2 puff IH BIDRT [facility] Last Admin: 04/22/20 09:51 Dose: Not Given Documented by: Morphine Sulfate (Morphine) 1 mg IVPUSH Q2H PRN PRN Reason: Pain Stop: 04/21/20 01:05 Last Admin: 04/21/20 00:27 Dose: 1 mg Documented by: Morphine Sulfate (Morphine) 2 mg IVPUSH Q2H PRN PRN Reason: Pain Last Admin: 04/22/20 11:26 Dose: 2 mg Documented by: Potassium Chloride (Klor-Con 10) 20 meq PO BID [facility] Last Admin: 04/22/20 08:43 Dose: Not Given Documented by: Sertraline HCl (Zoloft) 125 mg PO BEDTIME [facility] Last Admin: 04/21/20 20:56 Dose: 125 mg Documented by: Sodium Chloride (Saline Flush) 10 ml FLUSH Q8HR PRN PRN Reason: keep vein open - Exam Quality Assessment: Reports: Supplemental Oxygen (15 L nonrebreather) General: Reports: Alert, Moderate Distress. Denies: Oriented Lungs: Reports: Crackles Cardiovascular: Reports: Tachycardia GI/Abdominal Exam: Normal Bowel Sounds, Soft (Female) Exam: Deferred Extremities: No: Pedal Edema Skin: Reports: Cool Psy/Mental Status: Reports: Alert
== END 2020-04-22 13:30 | DRG 177 ==
LOC: KA.ED 18:30 → KA.MS 21:18 → UNDODISIN 04-22 13:30
PROVIDERS: ADMIT Nurse Practitioner Family; ATTEND Nurse Practitioner Family
PROC: XW033E5 Introduction of Remdesivir Anti-infective into Peripheral Vein, Percutaneous Approach, New Technology Group 5 (ICD-10-PCS; principal; 2020-04-20)
PROC: 8E0ZXY6 Isolation (ICD-10-PCS; 2020-04-20)
DX: U07.1 COVID-19 (principal); J96.00 Acute respiratory failure, unspecified whether with hypoxia or hypercapnia; E87.0 Hyperosmolality and hypernatremia; Z66 Do not resuscitate; E83.51 Hypocalcemia; Z51.5 Encounter for palliative care; E87.6 Hypokalemia; H54.7 Unspecified visual loss; R09.02 Hypoxemia; I10 Essential (primary) hypertension; J44.9 Chronic obstructive pulmonary disease, unspecified; Z87.39 Personal history of other diseases of the musculoskeletal system and connective tissue; Z86.69 Personal history of other diseases of the nervous system and sense organs; Z87.2 Personal history of diseases of the skin and subcutaneous tissue; Z87.09 Personal history of other diseases of the respiratory system; Z87.19 Personal history of other diseases of the digestive system; Z86.59 Personal history of other mental and behavioral disorders; M19.90 Unspecified osteoarthritis, unspecified site; K59.09 Other constipation; K44.9 Diaphragmatic hernia without obstruction or gangrene; E84.9 Cystic fibrosis, unspecified; G80.9 Cerebral palsy, unspecified; F32.9 Major depressive disorder, single episode, unspecified; F41.9 Anxiety disorder, unspecified; F81.9 Developmental disorder of scholastic skills, unspecified; L40.9 Psoriasis, unspecified; Z88.8 Allergy status to other drugs, medicaments and biological substances; Z79.899 Other long term (current) drug therapy
CPT/HCPCS: 36415; 71045; 80053; 82550; 83605; 83615; 83735; 83880; 84145; 84484; 85025; 85379; 85610; 85730; 86140; 93005; 99284; 99285; A9270-GY; J2270; J3480; J7030; J8540; U0002